=== PATIENT | male | born 1960 | race Caucasian/White ===

== ENCOUNTER 2021-02-24 23:09 | Emergency (ER) | payer BC ==
[~2021-02-24] VITALS: Ht 182.9 cm; Wt 108.9 kg
[2021-02-24 23:15] VITALS: BP_SYST 143
--- NOTE | 2021-02-24 23:15 | NUR ---
Dr. Velez bedside for pt eval
--- NOTE | 2021-02-24 23:15 | NUR ---
Placed in room 7 . Placed on monitor and storage bin tender, blood pressure machine and pulse oximeter. To gown for exam. Side rails up. Report given to MELISSA CHEUNG.
--- NOTE | 2021-02-24 23:30 | NUR ---
PT CRUZITO FROM HOME / EXT STAY [facility] TO ED FOR HIM REPORTING ON O2 INTERMITTENTLY FOR CHRONIC HYPOXIA, ORTHOPNEA. HX OF LL LOBECTOMY @AGE 3 VSS NO S/S OF ACUTE DISTRESS RESTING ON GURNEY
[2021-02-24] MEDS ORDERED: LORazepam 1 MG TABLET PO ONE (23:45)
--- NOTE | 2021-02-25 00:41 | NUR ---
Dr. Velez bedside for pt update
--- NOTE | 2021-02-25 01:25 | NUR ---
Pt stated " feeling a bit better "
[2021-02-25 02:05] VITALS: BP_SYST 143
--- NOTE | 2021-02-25 02:05 | NUR ---
Patient given written and verbal discharge instructions and verbalizes understanding. ER MD discussed with patient the results and treatment provided. Patient in stable condition. ID arm band removed. Patient educated on pain management and to follow up with PMD. Pain Scale 0/10 Opportunity for questions provided and answered.
== END 2021-02-25 02:05 | disposition home or self-care (01) ==
LOC: SED 23:09
DX: F41.9 Anxiety disorder, unspecified (principal); Z88.8 Allergy status to other drugs, medicaments and biological substances
CPT/HCPCS: 71045; 99283

== ENCOUNTER 2021-03-17 09:08 | Inpatient (IN) | payer BC, SELFPAY ==
[~2021-03-17] VITALS: Ht 170.2 cm; Wt 102.1 kg
[2021-03-17 09:12] VITALS: BP_SYST 164
--- NOTE | 2021-03-17 09:12 | NUR ---
BIB MEDICS FROM HOME FOR CP/SOB, STOPPED LASIX FOR 3 DAYS
--- NOTE | 2021-03-17 09:40 | NUR ---
DR WHEELER IN TO ASSESS
--- NOTE | 2021-03-17 09:41 | NUR ---
CALM, ALERT, NO DISTRESS, RESP UNLABRED, SKIN WARM AND DRY
[2021-03-17 09:47] LABS: BASOPHILS # (AUTO) 0.1 K/uL (0.0-0.2); BASOPHILS % (AUTO) 0.7 % (0.0-2.0); EOSINOPHILS % (AUTO) 0.4 % (0.0-4.0); HEMATOCRIT 31.1 % (36-54); HEMOGLOBIN 10.3 g/dL (14.0-18.0); LYMPHOCYTES # (AUTO) 1.2 K/uL (1.0-5.5); LYMPHOCYTES % (AUTO) 16.1 % (20.5-51.5); MEAN CORPUSCULAR HEMOGLOBIN 30 pg (27-31); MEAN CORPUSCULAR HGB CONC 33 % (32-36); MEAN CORPUSCULAR VOLUME 89 fL (79.0-98.0); MONOCYTES # (AUTO) 0.6 K/uL (0.0-1.0); MONOCYTES % (AUTO) 7.7 % (1.7-9.3); NEUTROPHILS # (AUTO) 5.5 K/uL (1.8-7.7); NEUTROPHILS % (AUTO) 75.1 % (40.0-70.0); PLATELET COUNT (AUTO) 185 K/uL (130-430); RED BLOOD CELL COUNT(AUTO) 3.49 MIL/uL (4.2-6.2); RED CELL DISTRIBUTION WIDTH 14.2 % (9.0-15.0); WHITE BLOOD COUNT (AUTO) 7.4 K/uL (4.8-10.8)
[2021-03-17 09:58] LABS: CALCIUM 8.6 mg/dL (8.4-11.0); CREATININE 0.79 mg/dL (0.55-1.30); POTASSIUM 3.5 mmol/L (3.5-5.1)
[2021-03-17 10:02] LABS: ALBUMIN 3.2 g/dL (3.4-4.8); TOTAL BILIRUBIN 0.2 mg/dL (0.0-1.0)
--- NOTE | 2021-03-17 10:42 | NUR ---
CTA CONSENT COMPLETED, TIPPLE BOSS AWARE
[2021-03-17] MEDS ORDERED: IOHEXOL 350 mgI/mL, 150 ML INFUS..BTL IV ONE (10:46)
[2021-03-17] MEDS ORDERED: MORPHINE 4 MG INJ. 4 MG/ML VIAL IVP ONE (11:30)
--- NOTE | 2021-03-17 11:38 | NUR ---
BACK FROM CT, TOLERATED WELL. NO DISTRES, VSS, SR ON MONITOR
[2021-03-17] MEDS ORDERED: ENOXAPARIN SODIUM 100 MG/ML SYRINGE SUBCUT ONE (12:00)
--- NOTE | 2021-03-17 12:20 | NUR ---
MEAL PROVIDED, PT TOLERATING WELL. NO DISTRESS
[2021-03-17 12:48] LABS: INR 0.9 (0.80-1.20); PROTHROMBIN TIME 9.9 SECS (9.5-12.5)
--- NOTE | 2021-03-17 13:16 | NUR ---
ULTRASOUND COMPLETED, TOLERATED WELL
--- NOTE | 2021-03-17 13:55 | NUR ---
PLACED ON HOSPITAL BED, REPOSITIONED, PILLOWS PROVIDED
--- NOTE | 2021-03-17 15:48 | NUR ---
DR BOLDEN IN TO ASSESS
[2021-03-17] MEDS ORDERED: METOCLOPRAMIDE HCL 10 MG/2 ML VIAL IVP PRN (16:00)
[2021-03-17] MEDS ORDERED: NALOXONE HCL 0.4 MG/ML AMP (NARCAN) IVP PRN (16:00)
[2021-03-17] MEDS ORDERED: IPRATROPIUM/ALBUTEROL SULFATE 3 ML AMPUL.NEB (DUONEB) INH PRN (16:00)
[2021-03-17] MEDS: IPRATROPIUM/ALBUTEROL SULFATE 3 ML AMPUL.NEB (DUONEB) INH SCH ×3 (16:00→23:27)
[2021-03-17] MEDS ORDERED: methylPREDNISolone SOD SUCC/PF 62.5 MG/ML VIAL IVP ONE (16:15)
[2021-03-17] MEDS ORDERED: FAMOTIDINE PF 20 MG/2 ML VIAL IVP ONE (16:15)
[2021-03-17] MEDS ORDERED: ASPIRIN 81 MG TABLET(ECOTRIN) PO ONE (16:15)
[2021-03-17] MEDS ORDERED: BISACODYL 5 MG TABLET.DR (DULCOLAX) PO ONE (16:15)
[2021-03-17] MEDS ORDERED: CARVEDILOL 6.25 MG TABLET (COREG) PO ONE (16:15)
[2021-03-17] MEDS: MORPHINE 2 MG/ML INJ. SYRINGE IVP PRN ×2 (16:30→20:46)
[2021-03-17] MEDS ORDERED: METOCLOPRAMIDE HCL 10 MG/2 ML VIAL IVP ONE (16:45)
[2021-03-17] MEDS ORDERED: cefTRIAXone 1 GM VIAL ONE (17:38)
[2021-03-17] MEDS: POTASSIUM CHLORIDE 10 MEQ TAB.PRT.SR PO SCH (17:39)
[2021-03-17] MEDS: FUROSEMIDE 20 MG TABLET PO SCH (17:40)
[2021-03-17] MEDS ORDERED: AZITHROMYCIN 500 MG/VIAL (ZITHROMAX) IV ONE (17:41)
--- NOTE | 2021-03-17 17:45 | NUR ---
UP AMBULATING STEADY, NO DISTRESS.
[2021-03-17] MEDS: AZITHROMYCIN 500 MG in NS 250 ML IV SCH (17:51)
[2021-03-17] MEDS: cefTRIAXone 1 GM in D5W 50 ML IV SCH (17:51)
[2021-03-17 18:06] VITALS: BP_SYST 141
--- NOTE | 2021-03-17 19:28 | NUR ---
Patient will be admitted to care of [facility]. Admitted to TELE unit. Will go to room 123. Belongings list completed. Complete and up to date summary report printed. SBAR report to be given at bedside with opportunity for questions.
--- NOTE | 2021-03-17 19:41 | NUR ---
ADMISSION NOTE Received patient from ER via nargis, received report from SKYE Hunter. Patient admitted with diagnosis of Dyspnea. Patient oriented to hospital routine, call light, toileting and safety-patient verbalized understanding.
[2021-03-17 19:53] VITALS: BP_SYST 146
[2021-03-17] MEDS ORDERED: FLU VACC QS2021-22(6MOS UP)/PF 0.5 ML/SYR SYRINGE I.M. PRN (20:15)
--- NOTE | 2021-03-17 20:30 | NUR ---
Initial RN notes Pt AAOx4, VSS, pt c/o chest and abd pain. O2 2L via NC satting at 98%. Medicated with Morphine 2mg IVP on R.AC 18G saline lock. Oriented to call light use, verbalized understanding. Bed low, locked, siderails up x2. To monitor.
--- NOTE | 2021-03-17 20:30 | NUR ---
Paged Dr. Oropeza [phone], s/w Judith
[2021-03-17] MEDS: methylPREDNISolone SOD SUCC/PF 62.5 MG/ML VIAL IVP SCH (20:42)
[2021-03-17] MEDS: FAMOTIDINE PF 20 MG/2 ML VIAL IVP SCH (20:42)
[2021-03-17] MEDS: CARVEDILOL 6.25 MG TABLET (COREG) PO SCH (20:42)
[2021-03-17] MEDS ORDERED: ENOXAPARIN SODIUM 100 MG/ML SYRINGE SUBCUT SCH (21:00)
[2021-03-17] MEDS ORDERED: ENOXAPARIN SODIUM 40 MG/0.4 ML SYRINGE SUBCUT SCH (21:00)
--- NOTE | 2021-03-18 00:30 | NUR ---
Pt on Bipap per RT.
[2021-03-18 00:40] VITALS: BP_SYST 131
--- NOTE | 2021-03-18 01:13 | NUR ---
CARDIO CONSULT Consult for Dr. Castro was called, RE: Dyspnea SW Darling
--- NOTE | 2021-03-18 01:19 | NUR ---
PULMO CONSULT Consult for Dr. Reddy was called, RE: Dyspnea SW Darling
[2021-03-18] MEDS: IPRATROPIUM/ALBUTEROL SULFATE 3 ML AMPUL.NEB (DUONEB) INH SCH ×5 (03:34→23:32)
[2021-03-18] MEDS: methylPREDNISolone SOD SUCC/PF 62.5 MG/ML VIAL IVP SCH ×3 (06:14→23:06)
[2021-03-18] MEDS: MORPHINE 2 MG/ML INJ. SYRINGE IVP PRN ×5 (06:16→23:07)
--- NOTE | 2021-03-18 06:16 | NUR ---
Closing notes Pt asleep, easily awakens, no s/s distress noted. Pt c/o chest and abd pain. Pt on bipap. Medicated with Morphine 2mg IVP on R.AC 18G saline lock. Bed low, locked, siderails up x2. To endorse to AM nurse.
--- NOTE | 2021-03-18 06:41 | NUR ---
Lab at bedside.
--- NOTE | 2021-03-18 07:40 | NUR ---
Opening note Patient is laying in bed A&Ox4 no complaint of pain or discomfort. No signs or symptoms of respiratory distress, tolerating 2L NC. IV is infusing no signs or symptoms of infiltration. Educated patient on plan of care and call light system, patient verbalized understanding. Bed is in lowest position, fall and aspiration precautions are in place. Will continue to monitor.
[2021-03-18 07:52] LABS: ALBUMIN 3.2 g/dL (3.4-4.8); CALCIUM 9.3 mg/dL (8.4-11.0); CREATININE 0.77 mg/dL (0.55-1.30); PHOSPHORUS 4.8 mg/dL (2.7-4.5); POTASSIUM 4.1 mmol/L (3.5-5.1); THYROID STIMULATING HORMONE 2.28 uIu/mL (0.36-3.74)
[2021-03-18 08:00] VITALS: BP_SYST 139
[2021-03-18 08:01] LABS: BASOPHILS % (AUTO) 0.2 % (0.0-2.0); HEMATOCRIT 35.3 % (36-54); HEMOGLOBIN 11.4 g/dL (14.0-18.0); LYMPHOCYTES # (AUTO) 1.1 K/uL (1.0-5.5); LYMPHOCYTES % (AUTO) 17.7 % (20.5-51.5); MEAN CORPUSCULAR HEMOGLOBIN 30 pg (27-31); MEAN CORPUSCULAR HGB CONC 32 % (32-36); MEAN CORPUSCULAR VOLUME 91 fL (79.0-98.0); MONOCYTES # (AUTO) 0.1 K/uL (0.0-1.0); MONOCYTES % (AUTO) 1.2 % (1.7-9.3); NEUTROPHILS # (AUTO) 5.1 K/uL (1.8-7.7); NEUTROPHILS % (AUTO) 80.9 % (40.0-70.0); PLATELET COUNT (AUTO) 187 K/uL (130-430); RED BLOOD CELL COUNT(AUTO) 3.87 MIL/uL (4.2-6.2); RED CELL DISTRIBUTION WIDTH 13.9 % (9.0-15.0); WHITE BLOOD COUNT (AUTO) 6.3 K/uL (4.8-10.8)
[2021-03-18] MEDS: POTASSIUM CHLORIDE 10 MEQ TAB.PRT.SR PO SCH ×2 (08:10→17:35)
[2021-03-18] MEDS: FAMOTIDINE PF 20 MG/2 ML VIAL IVP SCH ×2 (08:10→23:06)
[2021-03-18] MEDS: CARVEDILOL 6.25 MG TABLET (COREG) PO SCH ×2 (08:10→20:17)
[2021-03-18] MEDS: FUROSEMIDE 20 MG TABLET PO SCH ×2 (08:11→17:35)
[2021-03-18] MEDS: FLUoxetine HCL 20 MG CAPSULE (PROzac) PO SCH (08:11)
[2021-03-18] MEDS: ASPIRIN 81 MG TABLET(ECOTRIN) PO SCH (08:11)
[2021-03-18] MEDS: LISINOPRIL 10 MG TABLET (PRINIVIL) PO SCH (08:11)
[2021-03-18] MEDS ORDERED: ENOXAPARIN SODIUM 30 MG/0.3 ML SYRINGE SUBCUT SCH (09:00)
[2021-03-18 09:26] LABS: TOTAL BILIRUBIN 0.4 mg/dL (0.0-1.0)
[2021-03-18 12:00] VITALS: BP_SYST 135
[2021-03-18] MEDS: BISACODYL 5 MG TABLET.DR (DULCOLAX) PO PRN (13:17)
[2021-03-18] MEDS: AZITHROMYCIN 500 MG in NS 250 ML IV SCH (16:14)
--- NOTE | 2021-03-18 17:00 | NUR ---
MD rounds Dr. Hamilton into see the patient, updated on current status, new orders received. MD made aware about patient pain control goal.
[2021-03-18] MEDS: cefTRIAXone 1 GM in D5W 50 ML IV SCH (17:35)
[2021-03-18] MEDS ORDERED: QUEtiapine FUMARATE 25 MG TABLET PO SCH (18:00)
--- NOTE | 2021-03-18 18:28 | NUR ---
Closing note Patient is laying in bed A&Ox4 no complaint of pain or discomfort. No signs or symptoms of respiratory distress, tolerating 2L NC. IV is infusing no signs or symptoms of infiltration. All needs were met. Bed is in lowest position, fall and aspiration precautions are in place. Will endorse report to night filler.
[2021-03-18 20:00] VITALS: BP_SYST 125
[2021-03-18] MEDS: traMADol HCL HCL 50 MG TABLET (ULTRAM) PO PRN (20:16)
--- NOTE | 2021-03-18 20:30 | NUR ---
Consent Informed pt re MD's order for Nuclear med VQ scan of the lungs. Pt states he wants to speak w/ MD first before signing a consent.
--- NOTE | 2021-03-18 21:13 | NUR ---
Paged Dr. Oropeza s/w Meka
--- NOTE | 2021-03-18 21:16 | NUR ---
HIGH ALERT NOTE: Called Dr. Oropeza back at [phone] identified within the medical roster to verify physician authenticity for Restoril 30mg QHS.
[2021-03-18] MEDS: TEMAZEPAM 15 MG CAPSULE PO SCH (22:16)
[2021-03-18] MEDS ORDERED: TEMAZEPAM 15 MG CAPSULE ONE (22:19)
--- NOTE | 2021-03-18 22:40 | NUR ---
IV RE-INSERTION: IV site R. AC not patent. Restarted on L.FA 24G . Successful after 3 attempts. Will observe for any signs of infiltration.
--- NOTE | 2021-03-18 22:42 | NUR ---
MD rounds Dr. Reddy at bedside.
[2021-03-18] MEDS: PANTOPRAZOLE SODIUM 40 MG TAB PO SCH (23:30)
--- NOTE | 2021-03-18 23:47 | NUR ---
UA collected and sent to lab.
[2021-03-19 00:05] VITALS: BP_SYST 145
[2021-03-19 00:10] LABS: BILIRUBIN,URINE NEGATIVE (NEGATIVE); BLOOD, URINE NEGATIVE (NEGATIVE); CLARITY/URINE CLEAR (CLEAR); COLOR,URINE YELLOW (YELLOW); GLUCOSE,URINE NEGATIVE (NEGATIVE); KETONES,URINE NEGATIVE (NEGATIVE); LEUKOCYTE ESTERASE ,URINE NEGATIVE (NEGATIVE); NITRITE, URINE NEGATIVE (NEGATIVE); PH,URINE 6.5 (5.0-8.0); PROTEIN URINE NEGATIVE (NEGATIVE); UROBILINOGEN,URINE 0.2 (0.2-1.0)
[2021-03-19] MEDS: MORPHINE 2 MG/ML INJ. SYRINGE IVP PRN ×5 (03:03→21:35)
[2021-03-19] MEDS: IPRATROPIUM/ALBUTEROL SULFATE 3 ML AMPUL.NEB (DUONEB) INH SCH ×6 (03:42→23:30)
--- NOTE | 2021-03-19 06:00 | NUR ---
Closing notes Pt asleep, easily awakens, no s/s distress noted, no c/o sob or dyspnea. Pt on bipap. IV L.FA 24G clear and patent. Bed low, locked, siderails up x2. To endorse to AM nurse.
[2021-03-19] MEDS: methylPREDNISolone SOD SUCC/PF 62.5 MG/ML VIAL IVP SCH ×2 (06:03→13:12)
[2021-03-19 06:49] LABS: BASOPHILS % (AUTO) 0.1 % (0.0-2.0); HEMATOCRIT 33.5 % (36-54); LYMPHOCYTES # (AUTO) 0.8 K/uL (1.0-5.5); MEAN CORPUSCULAR HEMOGLOBIN 30 pg (27-31); MEAN CORPUSCULAR HGB CONC 33 % (32-36); MEAN CORPUSCULAR VOLUME 91 fL (79.0-98.0); MONOCYTES # (AUTO) 0.3 K/uL (0.0-1.0); MONOCYTES % (AUTO) 3.1 % (1.7-9.3); NEUTROPHILS # (AUTO) 7.7 K/uL (1.8-7.7); NEUTROPHILS % (AUTO) 87.8 % (40.0-70.0); PLATELET COUNT (AUTO) 181 K/uL (130-430); RED BLOOD CELL COUNT(AUTO) 3.68 MIL/uL (4.2-6.2); RED CELL DISTRIBUTION WIDTH 14.4 % (9.0-15.0); WHITE BLOOD COUNT (AUTO) 8.8 K/uL (4.8-10.8)
[2021-03-19 07:30] LABS: ALBUMIN 2.8 g/dL (3.4-4.8); CREATININE 0.72 mg/dL (0.55-1.30); POTASSIUM 4.1 mmol/L (3.5-5.1); THYROID STIMULATING HORMONE 1.61 uIu/mL (0.36-3.74); TOTAL BILIRUBIN 0.2 mg/dL (0.0-1.0)
--- NOTE | 2021-03-19 07:50 | NUR ---
Opening note Patient is laying in bed A&Ox4, complains of generalized pain, will provide pain medication. No signs or symptoms of respiratory distress, tolerating 2L NC. IV is infusing no signs or symptoms of infiltration. Educated patient on plan of care and call light system, patient verbalized understanding. Bed is in lowest position, fall and aspiration precautions are in place. Will continue to monitor.
[2021-03-19 08:00] VITALS: BP_SYST 121
--- NOTE | 2021-03-19 08:00 | NUR ---
Patient refused Patient refused Lung scan, provided education, patient says he can not lay flat for the duration of the scan. Will inform MD.
[2021-03-19] MEDS: FAMOTIDINE PF 20 MG/2 ML VIAL IVP SCH (08:37)
[2021-03-19] MEDS: PANTOPRAZOLE SODIUM 40 MG TAB PO SCH (08:37)
[2021-03-19] MEDS: CARVEDILOL 6.25 MG TABLET (COREG) PO SCH ×2 (08:38→20:26)
[2021-03-19] MEDS: ASPIRIN 81 MG TABLET(ECOTRIN) PO SCH (08:38)
[2021-03-19] MEDS: POTASSIUM CHLORIDE 10 MEQ TAB.PRT.SR PO SCH ×2 (08:38→17:25)
[2021-03-19] MEDS: FLUoxetine HCL 20 MG CAPSULE (PROzac) PO SCH (08:38)
[2021-03-19] MEDS: FUROSEMIDE 20 MG TABLET PO SCH ×2 (08:39→17:25)
[2021-03-19] MEDS: ENOXAPARIN SODIUM 40 MG/0.4 ML SYRINGE SUBCUT SCH (08:40)
[2021-03-19] MEDS: LISINOPRIL 10 MG TABLET (PRINIVIL) PO SCH (08:40)
[2021-03-19 12:32] VITALS: BP_SYST 147
--- NOTE | 2021-03-19 14:32 | NUR ---
Dietitian Recommendations * Recommend continuing cardiac diet * Consider CCHO diet if BG persist increasing. Please see Nutritional Assessment for details. SHAZIA, JULIAN
[2021-03-19] MEDS: AZITHROMYCIN 500 MG in NS 250 ML IV SCH (16:08)
[2021-03-19 16:35] VITALS: BP_SYST 140
[2021-03-19] MEDS: cefTRIAXone 1 GM in D5W 50 ML IV SCH (17:24)
[2021-03-19] MEDS ORDERED: LACTULOSE 20 GM/30 ML UDC PO ONE (17:30)
[2021-03-19] MEDS ORDERED: LACTULOSE 20 GM/30 ML UDC PO PRN (17:30)
--- NOTE | 2021-03-19 17:51 | NUR ---
Patient refused Patient refused one time order of lactulose, prefers to take it in the morning
[2021-03-19] MEDS ORDERED: QUEtiapine FUMARATE 100 MG TABLET PO SCH (18:00)
--- NOTE | 2021-03-19 18:43 | NUR ---
Closing note Patient is laying in bed A&Ox4, complains of generalized pain, will provide pain medication. No signs or symptoms of respiratory distress, tolerating 2L NC. IV is infusing no signs or symptoms of infiltration. All needs were met. Bed is in lowest position, fall and aspiration precautions are in place. Will endorse report to night guard.
--- NOTE | 2021-03-19 19:55 | NUR ---
Opening notes Pt AAO, watching TV, O2 2L via NC satting at 99%. Pt c/o L. shoulder pain and requesting Ultram pill. Will medicated as needed. IV L. FA 24G clear and patent. Call light within reach. Bed low, locked, siderails up x2. To monitor.
[2021-03-19 20:00] VITALS: BP_SYST 139
[2021-03-19] MEDS: BISACODYL 5 MG TABLET.DR (DULCOLAX) PO PRN (20:26)
[2021-03-19] MEDS: FAMOTIDINE 20 MG TABLET PO SCH (20:26)
[2021-03-19] MEDS: methylPREDNISolone SOD SUCC 40 MG/ML VIAL IVP SCH (20:27)
[2021-03-19] MEDS: traMADol HCL HCL 50 MG TABLET (ULTRAM) PO PRN (20:36)
[2021-03-19] MEDS: TEMAZEPAM 15 MG CAPSULE PO SCH (23:01)
[2021-03-20 00:37] VITALS: BP_SYST 127
[2021-03-20] MEDS: MORPHINE 2 MG/ML INJ. SYRINGE IVP PRN ×2 (03:09→10:00)
--- NOTE | 2021-03-20 03:09 | NUR ---
Morphine Pt awake and requested for Morphine for L. shoulder pain 12/08. Medicated as needed. Assisted pt to put back Bipap mask. Call light within reach. To monitor.
--- NOTE | 2021-03-20 04:30 | NUR ---
Consultation Paged Reason for Consultation: Arm muscular atrophy Was consult called: Y Person who was notified: Dr. Duong text message Consulting Physician: Elliot Roach Ordering Physician: Dr. Oropeza
--- NOTE | 2021-03-20 06:30 | NUR ---
Closing notes Pt asleep easily awakens, no s/s distress noted. Called Radiology and states no consent is needed, but pt needs to be NPO. Instructed pt re NPO for nuclear med lung scan. Pt verbalized understanding. Call light within reach. Safety maintained. To monitor.
[2021-03-20] MEDS: IPRATROPIUM/ALBUTEROL SULFATE 3 ML AMPUL.NEB (DUONEB) INH SCH ×3 (07:26→22:59)
[2021-03-20 08:02] VITALS: BP_SYST 136
--- NOTE | 2021-03-20 08:05 | NUR ---
OPENING NOTES PATIENT AAOX 4. HAS IV ACCESS ON THE LEFT FOREARM #20. SALINE LOCK. STILL ON BIPAP, PATIENT REFUSING TO HAVE ON 2LNC. VITALS SIGNS STABLE. AFEBRILE. CALL LIGHTS WITHIN REACH. BED LOW POSITION, ALARMED AND LOCKED. WILL CONTINUE TO MONITOR PATIENTS STATUS.
--- NOTE | 2021-03-20 09:20 | NUR ---
RT NOTE: 0920 Pt taken off of BiPAP at this time. Pt got up and went to restroom. Placed on 2LPM NC once in bed. No resp distress noted. RN Charleen made aware that pt is off BiPAP. BiPAP on standby.
[2021-03-20] MEDS: FAMOTIDINE 20 MG TABLET PO SCH (10:02)
[2021-03-20] MEDS: POTASSIUM CHLORIDE 10 MEQ TAB.PRT.SR PO SCH (10:02)
[2021-03-20] MEDS: ASPIRIN 81 MG TABLET(ECOTRIN) PO SCH (10:02)
[2021-03-20] MEDS: FLUoxetine HCL 20 MG CAPSULE (PROzac) PO SCH (10:02)
[2021-03-20] MEDS: LISINOPRIL 10 MG TABLET (PRINIVIL) PO SCH (10:03)
[2021-03-20] MEDS: PANTOPRAZOLE SODIUM 40 MG TAB PO SCH (10:03)
[2021-03-20] MEDS: BISACODYL 5 MG TABLET.DR (DULCOLAX) PO PRN (10:03)
[2021-03-20] MEDS: FUROSEMIDE 20 MG TABLET PO SCH (10:04)
[2021-03-20] MEDS: ENOXAPARIN SODIUM 40 MG/0.4 ML SYRINGE SUBCUT SCH (10:06)
[2021-03-20] MEDS: CARVEDILOL 6.25 MG TABLET (COREG) PO SCH (10:25)
[2021-03-20] MEDS: methylPREDNISolone SOD SUCC 40 MG/ML VIAL IVP SCH (10:25)
--- NOTE | 2021-03-20 11:23 | NUR ---
RT NOTE: Pt was placed on BIPAP at 1113 for nebulizer tx, this was pt's preference. At 1123, pt taken off BiPAP and placed on 2LPM NC. No resp distress noted. Addendum: 03/20/21 at 1151 by Melanie Cowart RT Amended: Links added.
[2021-03-20 13:03] VITALS: BP_SYST 130
[2021-03-20 20:15] VITALS: BP_SYST 135
--- NOTE | 2021-03-20 21:15 | NUR ---
Patient awake alert asking for pain medication call baltazar given to patient assist for position change HOB kept elevated .
--- NOTE | 2021-03-20 22:15 | NUR ---
MORPHINE SULFATE 2 MG IVP ADMINISTER FOR ACUTE BACK PAIN 12/08 continue to monitor comfort measures again helpful .
[2021-03-21] MEDS: MORPHINE 2 MG/ML INJ. SYRINGE IVP PRN ×3 (00:49→12:12)
[2021-03-21 01:00] VITALS: BP_SYST 141
[2021-03-21] MEDS: IPRATROPIUM/ALBUTEROL SULFATE 3 ML AMPUL.NEB (DUONEB) INH SCH ×2 (02:55→11:45)
--- NOTE | 2021-03-21 05:13 | NUR ---
MORPHINE SULFATE 2 MG IVP administer for general pain and helpful comfort measures implemented off loading with pillows call baltazar given to patient .
--- NOTE | 2021-03-21 08:00 | NUR ---
Patient A/Ox4. on BIPAP, SR on monitor. SR on monitor. Call light in place, bed locked at the lowest position, will continue to monitor.
[2021-03-21] MEDS: POTASSIUM CHLORIDE 10 MEQ TAB.PRT.SR PO SCH (08:09)
[2021-03-21] MEDS: PANTOPRAZOLE SODIUM 40 MG TAB PO SCH (08:09)
[2021-03-21] MEDS: ASPIRIN 81 MG TABLET(ECOTRIN) PO SCH (08:09)
[2021-03-21] MEDS: FAMOTIDINE 20 MG TABLET PO SCH (08:10)
[2021-03-21] MEDS: FUROSEMIDE 20 MG TABLET PO SCH (08:10)
[2021-03-21] MEDS: LISINOPRIL 10 MG TABLET (PRINIVIL) PO SCH (08:10)
[2021-03-21] MEDS: FLUoxetine HCL 20 MG CAPSULE (PROzac) PO SCH (08:11)
[2021-03-21] MEDS: CARVEDILOL 6.25 MG TABLET (COREG) PO SCH (08:15)
[2021-03-21] MEDS: ENOXAPARIN SODIUM 40 MG/0.4 ML SYRINGE SUBCUT SCH (08:18)
[2021-03-21 10:58] VITALS: BP_SYST 132
[2021-03-21] MEDS ORDERED: Lactulose PO (11:03)
[2021-03-21] MEDS ORDERED: COR6.25 PO (11:03)
[2021-03-21] MEDS ORDERED: Aspirin Ec PO (11:03)
[2021-03-21] MEDS ORDERED: FURO-150 PO (11:03)
[2021-03-21] MEDS ORDERED: PRO20 PO (11:03)
[2021-03-21] MEDS ORDERED: SER100 PO (11:03)
[2021-03-21] MEDS ORDERED: FAMO20TA8 PO (11:03)
[2021-03-21] MEDS ORDERED: IPRA3AMP9 INH (11:03)
[2021-03-21] MEDS ORDERED: Potassium Chloride PO (11:04)
--- NOTE | 2021-03-21 12:20 | NUR ---
Dr. Oropeza at bedside. D/C order given.
--- NOTE | 2021-03-21 13:00 | NUR ---
CM: Call placed to [facility], request made for home nebulizer machine, patient info faxed to company, states will be delivered tomorrows date at the earliest. contact info is # spoke to Arya for conformation.
--- NOTE | 2021-03-21 13:45 | NUR ---
CM: Call placed to [facility] , request for H/H services, patient info faxed over to agency, awaiting confirmation, will cont' with poc.
--- NOTE | 2021-03-21 15:48 | NUR ---
D/C Patient Patient given medication reconciliation form and D/C instructions. Exit Care provided. Patient verbalized understanding. MD discussed with patient the results and treatment provided. Ambulatory with steady gait for discharge to home. Patient in stable condition, ID band removed. IV catheter removed, intact and dressing applied, no active bleeding. Rx is given. Patient educated on pain management. All belongings sent with patient.
--- NOTE | 2021-03-21 16:00 | NUR ---
CM: Received confirmation of home health, will start tomorrow with [facility], spoke Phi in admin. will follow-up in am.
== END 2021-03-21 15:40 | disposition home health service (06) | DRG 191 ==
LOC: SED 09:08 → STU 12:23
PROVIDERS: ADMIT Internal Medicine; ATTEND Internal Medicine
PROC: 5A09457 Assistance with Respiratory Ventilation, 24-96 Consecutive Hours, Continuous Positive Airway Pressure (ICD-10-PCS; principal; 2021-03-18)
PROC: 5A09357 Assistance with Respiratory Ventilation, Less than 24 Consecutive Hours, Continuous Positive Airway Pressure (ICD-10-PCS; 2021-03-21)
DX: J44.1 Chronic obstructive pulmonary disease with (acute) exacerbation (principal); J96.10 Chronic respiratory failure, unspecified whether with hypoxia or hypercapnia; F41.9 Anxiety disorder, unspecified; I10 Essential (primary) hypertension; F32.A Depression, unspecified; Z20.822 Contact with and (suspected) exposure to COVID-19; J98.6 Disorders of diaphragm; E78.5 Hyperlipidemia, unspecified; E66.01 Morbid (severe) obesity due to excess calories; Z68.35 Body mass index [BMI] 35.0-35.9, adult; Z88.8 Allergy status to other drugs, medicaments and biological substances
CPT/HCPCS: 36415; 36600; 71045; 73030; 74018; 78579; 78580-TC; 80053; 80061; 81003; 82803-TC; 83735; 83880; 84100; 84443; 84484; 85025; 85379; 85610-TC; 85730-TC; 87040-TC; 93005; 93306; 93970; 94640; 94660; 94760; 96372; 96374; 96375; 99285; A9539; A9540; G0378; J0456; J0696; J1030; J1650; J2270; J2765; J2930; J3490; J7050; J7060; Q9967

== ENCOUNTER 2021-04-20 22:06 | Emergency (ER) | payer BC, SELFPAY ==
[~2021-04-20] VITALS: Ht 182.9 cm; Wt 102.1 kg
[~2021-04-20 22:06] MED LIST: Aspirin Ec PO; COR6.25 PO; FAMO20TA8 PO; FURO-150 PO; IPRA3AMP9 INH; Lactulose PO; PRO20 PO; Potassium Chloride PO; SER100 PO
--- NOTE | 2021-04-20 22:10 | NUR ---
PT BIB BLS AMBULANCE FOR GENERAL WEAKNESS AND PREVIOUS FALL. PT HAS BEEN FEELING WEAK SINCE AFTERNOON TODAY. HAS HAD ABOUT 2 FALLS THIS WEAK ALONE. PT HAS A HX OF DIAPHRAGM ISSUES, ON CHRONIC . A&OX4. -CP. NO REAL PAIN, JUST SOME NERVE ISSUES
--- NOTE | 2021-04-20 22:18 | NUR ---
ER Dr. ZAVALA at bedside examining patient.
[2021-04-20] MEDS ORDERED: NACL 0.9% 1,000 ML IV ONE (22:45)
--- NOTE | 2021-04-20 22:45 | NUR ---
XR AT BEDSIDE
[2021-04-20 22:46] VITALS: BP_SYST 141
--- NOTE | 2021-04-20 22:57 | NUR ---
# 20 gauge angiocath placed to R FOREARM. Use of asceptic technique. Opsite placed over site. Blood return noted. Blood for lab drawn from site. Flushed with 10 cc of normal saline. No evidence of infiltration noted. Patient tolerated well.
[2021-04-20] MEDS ORDERED: CARVEDILOL 6.25 MG TABLET (COREG) PO ONE (23:15)
[2021-04-20 23:26] LABS: HEMOGLOBIN 9.6 g/dL (14.0-18.0); PLATELET COUNT (AUTO) 120 K/uL (130-430); WHITE BLOOD COUNT (AUTO) 5.5 K/uL (4.8-10.8)
[2021-04-20 23:32] LABS: INR 0.9 (0.80-1.20); PROTHROMBIN TIME 9.6 SECS (9.5-12.5)
[2021-04-20 23:40] LABS: BASOPHILS % (AUTO) 0.5 % (0.0-2.0); CALCIUM 8.4 mg/dL (8.4-11.0); CREATININE 0.87 mg/dL (0.55-1.30); EOSINOPHILS # (AUTO) 0.1 K/uL (0.0-0.4); EOSINOPHILS % (AUTO) 2.4 % (0.0-4.0); HEMATOCRIT 28.8 % (36-54); LYMPHOCYTES # (AUTO) 2.1 K/uL (1.0-5.5); LYMPHOCYTES % (AUTO) 37.5 % (20.5-51.5); MEAN CORPUSCULAR HEMOGLOBIN 30 pg (27-31); MEAN CORPUSCULAR HGB CONC 33 % (32-36); MEAN CORPUSCULAR VOLUME 91 fL (79.0-98.0); MONOCYTES # (AUTO) 0.6 K/uL (0.0-1.0); MONOCYTES % (AUTO) 10.6 % (1.7-9.3); NEUTROPHILS # (AUTO) 2.7 K/uL (1.8-7.7); RED BLOOD CELL COUNT(AUTO) 3.17 MIL/uL (4.2-6.2); RED CELL DISTRIBUTION WIDTH 19.1 % (9.0-15.0)
[2021-04-20 23:45] LABS: ALBUMIN 3.5 g/dL (3.4-4.8); TOTAL BILIRUBIN 0.5 mg/dL (0.0-1.0)
--- NOTE | 2021-04-21 00:40 | NUR ---
PT PROVIDED FOOD AND WATER. MD BAIRD
[2021-04-21] MEDS ORDERED: POTASSIUM CHLORIDE 20 MEQ TAB.PRT.SR ONE (01:41)
[2021-04-21 01:42] LABS: BILIRUBIN,URINE NEGATIVE (NEGATIVE); BLOOD, URINE NEGATIVE (NEGATIVE); CLARITY/URINE CLEAR (CLEAR); COLOR,URINE YELLOW (YELLOW); GLUCOSE,URINE NEGATIVE (NEGATIVE); KETONES,URINE 1+ (NEGATIVE); LEUKOCYTE ESTERASE ,URINE NEGATIVE (NEGATIVE); NITRITE, URINE NEGATIVE (NEGATIVE); PH,URINE 5.5 (5.0-8.0); PROTEIN URINE TRACE (NEGATIVE); UROBILINOGEN,URINE 0.2 (0.2-1.0)
[2021-04-21] MEDS ORDERED: POTASSIUM CHLORIDE 20 MEQ TAB.PRT.SR PO ONE (01:45)
[2021-04-21] MEDS ORDERED: KCL 20 mEq in 100 mL (PREMIX) 100 ML IV ONE (01:45)
--- NOTE | 2021-04-21 02:09 | NUR ---
Dr. Holland bedside for pt update / re-eval
--- NOTE | 2021-04-21 03:30 | NUR ---
PT AWAITING TRANSPORT TO TAKE HIM BACK HOME TO [facility]
[2021-04-21 05:32] VITALS: BP_SYST 165
== END 2021-04-21 05:32 | disposition home or self-care (01) ==
LOC: SED 22:06
DX: E87.6 Hypokalemia (principal); D64.9 Anemia, unspecified
CPT/HCPCS: 36415; 71045; 80053; 81000; 81003; 83605; 84484; 85025; 85610; 85730; 87040; 93005; 96361; 96374; 99285; J3480; J7030

== ENCOUNTER 2021-05-01 13:27 | Emergency (ER) | payer BC, SELFPAY ==
[~2021-05-01] VITALS: Ht 182.9 cm; Wt 102.1 kg
--- NOTE | 2021-05-01 13:30 | NUR ---
BROUGHT IN BY [facility], PLACED IN BED #6 AND TRIAGED. REPORT GIVEN TO TATO
[2021-05-01 13:36] VITALS: BP_SYST 167
--- NOTE | 2021-05-01 13:47 | NUR ---
Pt. bib BLS with c/o shakiness, has been drinking vodka daily and hasn't had a drink since last night now feels weak and "shaky", requesting something to help detox., has not been taking care of himself and is tired of how he has been living
--- NOTE | 2021-05-01 14:00 | NUR ---
SL placed labs drawn
[2021-05-01 14:12] LABS: BASOPHILS % (AUTO) 0.8 % (0.0-2.0); EOSINOPHILS % (AUTO) 0.8 % (0.0-4.0); HEMATOCRIT 34.4 % (36-54); HEMOGLOBIN 11.5 g/dL (14.0-18.0); LYMPHOCYTES # (AUTO) 1.4 K/uL (1.0-5.5); LYMPHOCYTES % (AUTO) 24.3 % (20.5-51.5); MEAN CORPUSCULAR HEMOGLOBIN 31 pg (27-31); MEAN CORPUSCULAR HGB CONC 34 % (32-36); MEAN CORPUSCULAR VOLUME 92 fL (79.0-98.0); MONOCYTES # (AUTO) 0.7 K/uL (0.0-1.0); MONOCYTES % (AUTO) 13.1 % (1.7-9.3); NEUTROPHILS # (AUTO) 3.4 K/uL (1.8-7.7); PLATELET COUNT (AUTO) 203 K/uL (130-430); RED BLOOD CELL COUNT(AUTO) 3.75 MIL/uL (4.2-6.2); RED CELL DISTRIBUTION WIDTH 20.2 % (9.0-15.0); WHITE BLOOD COUNT (AUTO) 5.6 K/uL (4.8-10.8)
[2021-05-01 14:25] LABS: ANION GAP 9 (5-15); CALCIUM 9.2 mg/dL (8.4-11.0); CHLORIDE 95 mmol/L (98-107); GLUCOSE 101 mg/dL (70-99); POTASSIUM 3.8 mmol/L (3.5-5.1); SODIUM SERUM 139 mmol/L (136-145); UREA NITROGEN, BLOOD 14 mg/dL (8-21)
[2021-05-01 14:26] LABS: GFR AFRICAN AMERICAN 126 mL/min (>90)
[2021-05-01 14:31] LABS: ALANINE AMINOTRANSFERASE 40 U/L (12-78); ALBUMIN 3.9 g/dL (3.4-4.8); ALCOHOL, BLOOD 79 mg/dL (<10); ASPARTATE AMINOTRANSFERASE 69 U/L (10-37); TOTAL BILIRUBIN 0.6 mg/dL (0.0-1.0)
[2021-05-01 14:32] LABS: ACETAMINOPHEN < 1 ug/mL (1-30)
[2021-05-01 14:46] LABS: CHOLESTEROL 245 mg/dL (<200); HDL CHOLESTEROL 144 mg/dL (>45); LDL CHOLESTEROL 68 mg/dL (<100); TRIGLYCERIDES 128 mg/dL (30-150)
[2021-05-01] MEDS ORDERED: NACL 0.9% 1,000 ML IV ONE (15:00)
[2021-05-01] MEDS ORDERED: FOLIC ACID 1 MG, THIAMINE HCL 100 MG, MAGNESIUM SULFATE 1 GM, MVI 10 ML in NACL 0.9% 1,... IV ONE (15:00)
[2021-05-01] MEDS ORDERED: ONDANSETRON HCL 4 MG/2 ML VIAL IVP ONE (15:00)
[2021-05-01] MEDS ORDERED: LORazepam 2 MG/ML VIAL IVP ONE (15:00)
[2021-05-01] MEDS ORDERED: ONDANSETRON HCL 4 MG/2 ML VIAL ONE (15:06)
[2021-05-01] MEDS ORDERED: FOLIC ACID 1 MG, MVI 10 ML in NACL 0.9% 1,000 ML IV ONE (15:15)
[2021-05-01] MEDS ORDERED: THIAMINE HCL 100 MG, MAGNESIUM SULFATE 1 GM in NS 100 ML IV ONE (15:15)
[2021-05-01 16:18] LABS: BILIRUBIN,URINE NEGATIVE (NEGATIVE); BLOOD, URINE NEGATIVE (NEGATIVE); CLARITY/URINE CLEAR (CLEAR); COLOR,URINE YELLOW (YELLOW); GLUCOSE,URINE NEGATIVE (NEGATIVE); KETONES,URINE 3+ (NEGATIVE); LEUKOCYTE ESTERASE ,URINE NEGATIVE (NEGATIVE); NITRITE, URINE NEGATIVE (NEGATIVE); PROTEIN URINE 1+ (NEGATIVE)
[2021-05-01 16:24] LABS: BACTERIA,URINE RARE /HPF (None Seen); MUCUS,URINE None Seen /LPF (None Seen); RBC,URINE 0-3 /HPF (0-3); WBC,URINE 0-3 /HPF (0-3)
--- NOTE | 2021-05-01 16:24 | NUR ---
DR COREY AWARE OF BP OK FOR PATIENT TO TAKE OWN COREG
[2021-05-01 16:25] LABS: BARBITURATE, URINE NEGATIVE (NEG <=200); BENZODIAZEPINE, URINE POSITIVE (NEG <=150); CANNABINOID, URINE NEGATIVE (NEG <=50); COCAINE, URINE NEGATIVE (NEG <=150); METHAMPHETAMINES SCREEN,URINE NEGATIVE (NEG <=500); OPIATE, URINE NEGATIVE (NEG <=100); PHENCYCLIDINE SCREEN,URINE NEGATIVE (NEG <=25); UR TRICYCLIC ANTIDEPRESSANTS NEGATIVE (NEG <=300); URINE AMPHETAMINE NEGATIVE (NEG <=500); URINE METHADONE NEGATIVE (NEG <=200); URINE OXYCODONE SCREEN NEGATIVE (NEG <=100); URINE PROPOXYPHENE SCREEN NEGATIVE (NEG <=300)
[2021-05-01] MEDS ORDERED: cloNIDine HCL 0.1 MG TABLET PO ONE (17:00)
[2021-05-01] MEDS ORDERED: ALPRAZolam 0.25 MG TABLET PO ONE (17:00)
[2021-05-01 18:59] VITALS: BP_SYST 144
--- NOTE | 2021-05-01 19:01 | NUR ---
Patient given written and verbal discharge instructions and verbalizes understanding. ER traci GRAYSON discussed with patient the results and treatment provided. Patient in stable condition. ID arm band removed. IV catheter removed intact and dressing applied, no active bleeding. Patient educated on pain management and to follow up with PMD. Pain Scale 0. Opportunity for questions provided and answered. Medication side effect fact sheet provided.
== END 2021-05-01 19:01 | disposition home or self-care (01) ==
LOC: SED 13:27
DX: F10.239 Alcohol dependence with withdrawal, unspecified (principal); Z88.8 Allergy status to other drugs, medicaments and biological substances; Z79.82 Long term (current) use of aspirin; Z79.899 Other long term (current) drug therapy; Y90.3 Blood alcohol level of 60-79 mg/100 ml
CPT/HCPCS: 36415; 71045; 80053; 80061; 80307; 81000; 83036; 85025; 86308; 93005; 96361; 96365; 96366; 96368; 96375; 99285; G0480; J2060; J2405; J3411; J3475; J3490; J7030; G0481; G0482

== ENCOUNTER 2021-11-27 22:47 | Inpatient (IN) | payer BC ==
[~2021-11-27] VITALS: Ht 182.9 cm; Wt 111.8 kg
[2021-11-27 22:52] VITALS: BP_SYST 162
--- NOTE | 2021-11-27 23:06 | NUR ---
Placed in room 1 . Placed on laboratory monitor, blood pressure machine and pulse oximeter. To gown for exam. Side rails up. Report given to ALICIA CHEUNG.
--- NOTE | 2021-11-27 23:21 | NUR ---
Patient to bed 1 at this time w/ c/o chest x1 hour midsternal 03/10 1 hour ago per patient. Pt states "I have no chest pain at this time". Respirations tachypneic and mildly labored. Pt placed on hand bulldozer and pulse oximetry. Side rails up bed in low position
[2021-11-28] VITALS (7 sets, daily range): BP systolic 120–172
--- NOTE | 2021-11-28 | NUR ---
# 20 gauge angiocath placed to left hand. Use of asceptic technique. Opsite placed over site. Blood return noted. Blood for lab drawn from site. Flushed with 10 cc of normal saline. No evidence of infiltration noted. Patient tolerated well.
--- NOTE | 2021-11-28 00:40 | NUR ---
Pt ambulating to bathroom at this time
[2021-11-28 00:51] LABS: BASOPHILS # (AUTO) 0.1 K/uL (0.0-0.2); BASOPHILS % (AUTO) 1.2 % (0.0-2.0); EOSINOPHILS % (AUTO) 0.2 % (0.0-4.0); HEMATOCRIT 38.1 % (36-54); HEMOGLOBIN 13.2 g/dL (14.0-18.0); LYMPHOCYTES # (AUTO) 1.2 K/uL (1.0-5.5); LYMPHOCYTES % (AUTO) 14.5 % (20.5-51.5); MEAN CORPUSCULAR HEMOGLOBIN 31 pg (27-31); MEAN CORPUSCULAR HGB CONC 35 % (32-36); MEAN CORPUSCULAR VOLUME 90 fL (79.0-98.0); MONOCYTES # (AUTO) 0.5 K/uL (0.0-1.0); MONOCYTES % (AUTO) 5.5 % (1.7-9.3); NEUTROPHILS # (AUTO) 6.7 K/uL (1.8-7.7); NEUTROPHILS % (AUTO) 78.6 % (40.0-70.0); PLATELET COUNT (AUTO) 228 K/uL (130-430); RED BLOOD CELL COUNT(AUTO) 4.24 MIL/uL (4.2-6.2); RED CELL DISTRIBUTION WIDTH 15.5 % (9.0-15.0); WHITE BLOOD COUNT (AUTO) 8.5 K/uL (4.8-10.8)
[2021-11-28 00:56] LABS: ANION GAP 11 (5-15); CALCIUM 8.9 mg/dL (8.4-11.0); CHLORIDE 100 mmol/L (98-107); CREATININE 0.84 mg/dL (0.55-1.30); GLUCOSE 138 mg/dL (70-99); POTASSIUM 3.9 mmol/L (3.5-5.1); SODIUM SERUM 137 mmol/L (136-145); UREA NITROGEN, BLOOD 19 mg/dL (8-21)
[2021-11-28 00:59] LABS: PROTHROMBIN TIME 10.1 SECS (9.5-12.5)
[2021-11-28 01:11] LABS: ALANINE AMINOTRANSFERASE 56 U/L (12-78); ALBUMIN 3.8 g/dL (3.4-4.8); ASPARTATE AMINOTRANSFERASE 57 U/L (10-37); TOTAL BILIRUBIN 0.7 mg/dL (0.0-1.0)
[2021-11-28 01:13] LABS: ALCOHOL, BLOOD < 3 mg/dL (<10); GFR AFRICAN AMERICAN 119 mL/min (>90)
--- NOTE | 2021-11-28 01:27 | NUR ---
Pt requesting medication for nausea at this time. made aware.
[2021-11-28] MEDS ORDERED: NACL 0.9% 1,000 ML IV ONE (01:45)
[2021-11-28] MEDS ORDERED: ONDANSETRON HCL 4 MG/2 ML VIAL IVP ONE ×2 (01:45)
--- NOTE | 2021-11-28 02:13 | NUR ---
MD at bedside updating patient on plan of care.
--- NOTE | 2021-11-28 02:50 | NUR ---
PT STATES THAT HE IS HAVING ANXIETY ATTACK AT THIS TIME AND HE STATED THAT HE IS TAKING XANAX 0.25 MG, INFORMED DR. HORNE AND RECEIVED ORDERS TO GIVE XANAX 0.25 MG
[2021-11-28] MEDS ORDERED: ALPRAZolam 0.25 MG TABLET ONE (02:57)
[2021-11-28] MEDS ORDERED: ALPRAZolam 0.25 MG TABLET PO ONE (03:00)
--- NOTE | 2021-11-28 03:14 | NUR ---
PATIENT SWABBED ENERGY CROP FARMER, LABELED AND SENT TO LAB
[2021-11-28] MEDS ORDERED: chlordiazePOXIDE HCL 25 MG CAPSULE PO ONE (03:15)
--- NOTE | 2021-11-28 03:24 | NUR ---
Admit bed requested Patient will be admitted to care of . Admitted to TELE unit. Diagnosis CP Inpatient (Yes or No) YES Observation (Yes or No) NO Orientation concerns or request close to nursing station (Yes or No) NO Covid Status PENDING On vent or bipap NO Isolation requirements NO Needs a sitter NO From Home (Yes or if No enter name of facility) NO Requires Dialysis (Yes or No) N0 Med Rec Completed (Yes of No) PENDING
--- NOTE | 2021-11-28 04:58 | NUR ---
ADMIT NOTE Received pt from ER with a diagnosis of chest pain. Admission process initiated. patient oriented to pain management, safety and call light-teach back done.
--- NOTE | 2021-11-28 04:59 | NUR ---
Report given to Elvira RNs at bedside for room 112A
--- NOTE | 2021-11-28 05:10 | NUR ---
CONSULTATION PAGED/CALLED Reason for Consultation: cHEST PAIN Person Who was Notified: Carrol Consulting Physician: Dr. Castro Feltmaker And Weigher Specialty: derivatives trader Ordering Physician: Dr. Lopez
--- NOTE | 2021-11-28 05:17 | NUR ---
CONSULTATION PAGED/CALLED Reason for Consultation: SOB Person Who was Notified: JOHN Consulting Physician: DR. MOROCHO Gas Well Drilling Manager Specialty: HIDES INSPECTOR Ordering Physician: DR. MUSA
[2021-11-28] MEDS: ONDANSETRON HCL 4 MG/2 ML VIAL IVP PRN ×3 (05:41→17:33)
[2021-11-28] MEDS: D5/0.45 NS 1,000 ML IV SCH ×2 (05:41→23:15)
--- NOTE | 2021-11-28 08:00 | NUR ---
Morning notes: Pt A/Ox4 resting in chair. No s/s of respiratory or cardiac distress, L hand IV site is clean dry and intact with ordered fluids running. Safety precautions in place, call light with in reach, will continue to monitor.
[2021-11-28] MEDS ORDERED: IPRATROPIUM/ALBUTEROL SULFATE 3 ML AMPUL.NEB (DUONEB) INH PRN (09:15)
[2021-11-28] MEDS ORDERED: PRO20 PO (09:26)
[2021-11-28] MEDS ORDERED: COR12.5 PO (09:26)
[2021-11-28] MEDS ORDERED: QUET200T PO (09:26)
[2021-11-28] MEDS ORDERED: LIP40 PO (09:26)
[2021-11-28] MEDS: PANTOPRAZOLE SODIUM 40 MG/VIAL (PROTONIX) IVP SCH (09:50)
[2021-11-28 10:09] LABS: CHOLESTEROL 207 mg/dL (<200); HDL CHOLESTEROL 82 mg/dL (>45); LDL CHOLESTEROL 106 mg/dL (<100); TRIGLYCERIDES 76 mg/dL (30-150)
[2021-11-28] MEDS ORDERED: ACETAMINOPHEN 325 MG TABLET PO PRN (17:00)
[2021-11-28] MEDS ORDERED: QUEtiapine FUMARATE 100 MG TABLET PO SCH (18:00)
[2021-11-28] MEDS: POTASSIUM CHLORIDE 10 MEQ TAB.PRT.SR PO SCH (18:08)
--- NOTE | 2021-11-28 18:56 | NUR ---
Closing Notes: Pt A/Ox4 resting in chair. No s/s of respiratory or cardiac distress, L hand IV site is clean dry and intact with ordered fluids running. Safety precautions in place, call light with in reach, will endorse to fast food shift supervisor.
[2021-11-28] MEDS: FAMOTIDINE 20 MG TABLET PO SCH (21:40)
[2021-11-28] MEDS: FLUoxetine HCL 20 MG CAPSULE (PROzac) PO SCH (21:41)
[2021-11-28] MEDS: CARVEDILOL 12.5 MG TABLET (COREG) PO SCH (21:41)
[2021-11-28] MEDS ORDERED: TEMAZEPAM 7.5 MG CAPSULE PO PRN (22:00)
--- NOTE | 2021-11-28 22:30 | NUR ---
PT C/O RESTLESSNESS AND NOT BEING ABLE TO SLEEP. PTREQUESTED A SLEEPING AID. PT MEDICATED PER EMAR.
[2021-11-29] VITALS: BP_SYST 100
--- NOTE | 2021-11-29 00:30 | NUR ---
PT IN BED ASLEEP WITH BIPAP ON. PT APPEARS TO BE COMFORTABLE. PT IS NO LONGER RESTLESS AT THIS TIME. WILL CONTINUE TO MONITOR
[2021-11-29 02:42] LABS: BASOPHILS # (AUTO) 0.1 K/uL (0.0-0.2); BASOPHILS % (AUTO) 1.4 % (0.0-2.0); EOSINOPHILS # (AUTO) 0.3 K/uL (0.0-0.4); EOSINOPHILS % (AUTO) 4.4 % (0.0-4.0); HEMATOCRIT 35.3 % (36-54); HEMOGLOBIN 12.2 g/dL (14.0-18.0); LYMPHOCYTES % (AUTO) 25.7 % (20.5-51.5); MEAN CORPUSCULAR HEMOGLOBIN 31 pg (27-31); MEAN CORPUSCULAR HGB CONC 35 % (32-36); MEAN CORPUSCULAR VOLUME 91 fL (79.0-98.0); MONOCYTES # (AUTO) 0.9 K/uL (0.0-1.0); MONOCYTES % (AUTO) 12.1 % (1.7-9.3); NEUTROPHILS # (AUTO) 4.3 K/uL (1.8-7.7); NEUTROPHILS % (AUTO) 56.4 % (40.0-70.0); PLATELET COUNT (AUTO) 179 K/uL (130-430); RED CELL DISTRIBUTION WIDTH 15.2 % (9.0-15.0); WHITE BLOOD COUNT (AUTO) 7.6 K/uL (4.8-10.8)
[2021-11-29 02:54] LABS: CALCIUM 7.9 mg/dL (8.4-11.0); CREATININE 0.94 mg/dL (0.55-1.30); POTASSIUM 3.5 mmol/L (3.5-5.1)
[2021-11-29 03:02] LABS: ALBUMIN 3.1 g/dL (3.4-4.8); TOTAL BILIRUBIN 0.6 mg/dL (0.0-1.0)
--- NOTE | 2021-11-29 06:58 | NUR ---
PT SLEPT THROUGH THE NIGHT ONCE THE SLEEPING AID TOOK AFFECT. PT HAS RESTLESS LEGS EVERY AT TIMES. BIPAP IS STILL CURRENTLY ON. BED ALARM IS ON DUE TO SLEEPING AID. ALL OTHER NEEDS MEET AT THIS TIME. PT MAY BE HAVING ALCOHOL WITHDRAWS WILL ENDORSE CARE TO ONCOMING NURSE
[2021-11-29 08:00] VITALS: BP_SYST 115
--- NOTE | 2021-11-29 08:00 | NUR ---
Morning notes: Pt A/Ox4 resting in bed. No s/s of respiratory or cardiac distress, L hand IV site is clean dry and intact with ordered fluids running. Safety precautions in place, call light with in reach, will continue to monitor.
[2021-11-29] MEDS ORDERED: THIAMINE HCL 100 MG TABLET PO SCH (09:00)
[2021-11-29] MEDS ORDERED: ASPIRIN 81 MG TABLET(ECOTRIN) PO SCH (09:00)
[2021-11-29] MEDS ORDERED: FOLIC ACID 1 MG TABLET PO SCH (09:00)
[2021-11-29] MEDS ORDERED: ATORVASTATIN 20 MG TABLET PO SCH (09:00)
[2021-11-29] MEDS: FLUoxetine HCL 20 MG CAPSULE (PROzac) PO SCH (10:20)
[2021-11-29] MEDS: PANTOPRAZOLE SODIUM 40 MG/VIAL (PROTONIX) IVP SCH (10:20)
[2021-11-29] MEDS: FAMOTIDINE 20 MG TABLET PO SCH (10:21)
[2021-11-29] MEDS: CARVEDILOL 12.5 MG TABLET (COREG) PO SCH (10:21)
[2021-11-29] MEDS: POTASSIUM CHLORIDE 10 MEQ TAB.PRT.SR PO SCH (10:21)
--- NOTE | 2021-11-29 14:41 | NUR ---
Discharge Planning: DCP called [facility] [phone] spoke to Armando CHEUNG requested name of patients home health. Armando was in a meeting and will call back with information. RODRIGOP to follow up Addendum: 11/29/21 at 1637 by Shyann Thapa DP Patient has [facility] P#[phone] Saeid P#[phone] Rebecca HURD
[2021-11-29 16:12] VITALS: BP_SYST 140
== END 2021-11-29 16:41 | disposition home health service (06) | DRG 189 ==
LOC: SED 22:47 → STU 11-28 03:10
PROVIDERS: ADMIT Internal Medicine; ATTEND Internal Medicine
PROC: 5A09357 Assistance with Respiratory Ventilation, Less than 24 Consecutive Hours, Continuous Positive Airway Pressure (ICD-10-PCS; principal; 2021-11-28)
DX: J96.20 Acute and chronic respiratory failure, unspecified whether with hypoxia or hypercapnia (principal); J44.9 Chronic obstructive pulmonary disease, unspecified; I10 Essential (primary) hypertension; G47.33 Obstructive sleep apnea (adult) (pediatric); F32.A Depression, unspecified; F41.9 Anxiety disorder, unspecified; E66.9 Obesity, unspecified; F10.10 Alcohol abuse, uncomplicated; Y90.9 Presence of alcohol in blood, level not specified; E78.5 Hyperlipidemia, unspecified; Z20.822 Contact with and (suspected) exposure to COVID-19; Z79.84 Long term (current) use of oral hypoglycemic drugs; Z79.899 Other long term (current) drug therapy; Z68.33 Body mass index [BMI] 33.0-33.9, adult; Z79.82 Long term (current) use of aspirin
CPT/HCPCS: 36415; 71045; 80053; 80061; 83880; 84443; 84484; 85025; 85379; 85610-TC; 93005; 93970; 94660; 96361; 96374; 99285; C9113; G0378; G0482; J2405

== ENCOUNTER 2022-07-23 15:41 | Outpatient (CLI) | payer BC ==
[~2022-07-23 15:41] MED LIST changes: +COR12.5 PO; -COR6.25 PO; -FURO-150 PO; +LIP40 PO; -Lactulose PO; +QUET200T PO; -SER100 PO
[2022-07-23 16:42] LABS: BASOPHILS # (AUTO) 0.1 K/uL (0.0-0.2); BASOPHILS % (AUTO) 0.8 % (0.0-2.0); EOSINOPHILS # (AUTO) 0.3 K/uL (0.0-0.4); EOSINOPHILS % (AUTO) 3.4 % (0.0-4.0); HEMATOCRIT 36.5 % (36-54); HEMOGLOBIN 12.2 g/dL (14.0-18.0); LYMPHOCYTES # (AUTO) 2.2 K/uL (1.0-5.5); LYMPHOCYTES % (AUTO) 28.1 % (20.5-51.5); MEAN CORPUSCULAR HEMOGLOBIN 31 pg (27-31); MEAN CORPUSCULAR HGB CONC 33 % (32-36); MEAN CORPUSCULAR VOLUME 91 fL (79.0-98.0); MONOCYTES # (AUTO) 0.8 K/uL (0.0-1.0); MONOCYTES % (AUTO) 10.1 % (1.7-9.3); NEUTROPHILS # (AUTO) 4.4 K/uL (1.8-7.7); NEUTROPHILS % (AUTO) 57.6 % (40.0-70.0); PLATELET COUNT (AUTO) 169 K/uL (130-430); RED CELL DISTRIBUTION WIDTH 15.2 % (9.0-15.0); WHITE BLOOD COUNT (AUTO) 7.7 K/uL (4.8-10.8)
[2022-07-23 16:47] LABS: BILIRUBIN,URINE NEGATIVE (NEGATIVE); BLOOD, URINE NEGATIVE (NEGATIVE); CLARITY/URINE CLEAR (CLEAR); COLOR,URINE YELLOW (YELLOW); GLUCOSE,URINE NEGATIVE (NEGATIVE); KETONES,URINE NEGATIVE (NEGATIVE); LEUKOCYTE ESTERASE ,URINE NEGATIVE (NEGATIVE); NITRITE, URINE NEGATIVE (NEGATIVE); PROTEIN URINE NEGATIVE (NEGATIVE); UROBILINOGEN,URINE 0.2 (0.2-1.0)
[2022-07-23 17:14] LABS: ALBUMIN 3.9 g/dL (3.4-4.8); CALCIUM 9.2 mg/dL (8.4-11.0); CREATININE 1.16 mg/dL (0.55-1.30); THYROID STIMULATING HORMONE 2.27 uIu/mL (0.34-4.82); TOTAL BILIRUBIN 0.6 mg/dL (0.0-1.0)
== END 2022-07-23 18:47 | disposition home or self-care (01) ==
LOC: SLB 15:41
PROVIDERS: ATTEND Internal Medicine
DX: I10 Essential (primary) hypertension (principal); J44.9 Chronic obstructive pulmonary disease, unspecified; J98.6 Disorders of diaphragm; E66.9 Obesity, unspecified; N40.1 Benign prostatic hyperplasia with lower urinary tract symptoms; R10.0 Acute abdomen; E03.9 Hypothyroidism, unspecified
CPT/HCPCS: 36415; 80053; 80061; 81003; 83037; 83690; 84153; 84443; 85025

== ENCOUNTER 2022-10-09 13:30 | Outpatient (CLI) | payer BC | END 2022-10-09 20:52 | disposition home or self-care (01) | LOC: SUS 13:30 | PROVIDERS: ATTEND Internal Medicine | DX: K80.20 Calculus of gallbladder without cholecystitis without obstruction (principal); N32.89 Other specified disorders of bladder | CPT/HCPCS: 76700-TC ==

== ENCOUNTER 2023-01-27 15:51 | Inpatient (IN) | payer BC ==
[~2023-01-27] VITALS: Ht 182.9 cm; Wt 130.4 kg
[2023-01-27 15:55] VITALS: BP_SYST 144; PULSE 96; RESP 20; TEMP 98; O2SAT 97
[2023-01-27] MEDS ORDERED: methylPREDNISolone SOD SUCC/PF 62.5 MG/ML VIAL IVP ONE (16:00)
[2023-01-27] MEDS ORDERED: DIPHENHYDRAMINE INJ 50 MG/ML VIAL IVP ONE (16:00)
[2023-01-27] MEDS ORDERED: ALBUTEROL SULFATE 0.083% 2.5 MG/3 ML VIAL.NEB INH ONE (16:00)
[2023-01-27] MEDS ORDERED: MAGNESIUM SULFATE 50 ML IV ONE (16:00)
[2023-01-27 16:49] LABS: BASOPHILS # (AUTO) 0.1 K/uL (0.0-0.2); BASOPHILS % (AUTO) 0.9 % (0.0-2.0); EOSINOPHILS # (AUTO) 0.7 K/uL (0.0-0.4); EOSINOPHILS % (AUTO) 7.7 % (0.0-4.0); HEMATOCRIT 37.8 % (36-54); HEMOGLOBIN 12.4 g/dL (14.0-18.0); LYMPHOCYTES # (AUTO) 1.7 K/uL (1.0-5.5); LYMPHOCYTES % (AUTO) 17.4 % (20.5-51.5); MEAN CORPUSCULAR HEMOGLOBIN 30 pg (27-31); MEAN CORPUSCULAR HGB CONC 33 % (32-36); MEAN CORPUSCULAR VOLUME 91 fL (79.0-98.0); MONOCYTES # (AUTO) 0.8 K/uL (0.0-1.0); MONOCYTES % (AUTO) 8.6 % (1.7-9.3); NEUTROPHILS # (AUTO) 6.3 K/uL (1.8-7.7); NEUTROPHILS % (AUTO) 65.4 % (40.0-70.0); PLATELET COUNT (AUTO) 181 K/uL (130-430); RED BLOOD CELL COUNT(AUTO) 4.14 MIL/uL (4.2-6.2); RED CELL DISTRIBUTION WIDTH 15.4 % (9.0-15.0); WHITE BLOOD COUNT (AUTO) 9.6 K/uL (4.8-10.8)
[2023-01-27 17:09] LABS: ANION GAP 13 (5-15); CALCIUM 8.5 mg/dL (8.4-11.0); CARBON DIOXIDE 27 mmol/L (23-29); CHLORIDE 96 mmol/L (98-107); CREATININE 1.02 mg/dL (0.55-1.30); GFR AFRICAN AMERICAN 95 mL/min (>90); GLUCOSE 105 mg/dL (74-106); POTASSIUM 3.9 mmol/L (3.5-5.1); SODIUM SERUM 136 mmol/L (136-145); UREA NITROGEN, BLOOD 21 mg/dL (8-21)
[2023-01-27 17:10] LABS: GFR NON AFRICAN-AMERICAN 78 mL/min (>90)
[2023-01-27 17:12] LABS: BLOOD GAS HCO3 26.3 mmol/L (21.0-27.0); BLOOD GAS PCO2 44.3 mmHg (32.0-45.0); BLOOD GAS PH 7.391 (7.350-7.450); BLOOD GAS PO2 92.3 mmHg (75.0-100.0)
[2023-01-27 17:16] LABS: ALANINE AMINOTRANSFERASE 42 U/L (12-78); ALBUMIN 3.6 g/dL (3.4-4.8); ASPARTATE AMINOTRANSFERASE 64 U/L (10-37); TOTAL BILIRUBIN 0.6 mg/dL (0.0-1.0); TOTAL PROTEIN, SERUM 7.1 g/dL (6.4-8.3)
[2023-01-27] MEDS: IPRATROPIUM BROM 0.5 MG/2.5 ML VIAL.NEB (ATROVENT) INH SCH (19:00)
[2023-01-27] MEDS ORDERED: PRO40 PO (20:30)
[2023-01-27] MEDS ORDERED: CHOL500051 PO (20:30)
[2023-01-27] MEDS ORDERED: MULT-1198 PO (20:30)
[2023-01-27] MEDS ORDERED: LISI10TA29 PO (20:30)
[2023-01-27] MEDS ORDERED: TEMA30CA5 PO (20:30)
[2023-01-27] MEDS ORDERED: CYAN100097 PO (20:30)
[2023-01-27] MEDS ORDERED: CYM30 PO (20:30)
[2023-01-27 21:38] VITALS: BP_SYST 135; PULSE 96; O2SAT 95
[2023-01-27 21:48] VITALS: BP_SYST 159; PULSE 98; RESP 22; TEMP 97.3
[2023-01-27 22:15] VITALS: O2SAT 97
[2023-01-27 23:00] VITALS: PULSE 59
[2023-01-27 23:19] VITALS: PULSE 103
[2023-01-27] MEDS ORDERED: DULoxetine HCL 30 MG CAPSULE.DR (CYMBALTA) PO SCH (23:30)
[2023-01-28] VITALS (14 sets, daily range): BP systolic 119–158; PULSE 70–105; RESP 16–24; TEMP 97–98.2; O2SAT 93–99
[2023-01-28] MEDS ORDERED: methylPREDNISolone SOD SUCC/PF 62.5 MG/ML VIAL ONE (00:13)
[2023-01-28] MEDS: methylPREDNISolone SOD SUCC/PF 62.5 MG/ML VIAL IVP SCH ×4 (00:20→18:13)
[2023-01-28] MEDS: DIPHENHYDRAMINE HCL 25 MG CAPSULE PO PRN ×3 (00:23→18:23)
[2023-01-28] MEDS: QUEtiapine FUMARATE 100 MG TABLET PO SCH ×2 (00:23→21:08)
[2023-01-28] MEDS: TEMAZEPAM 15 MG CAPSULE PO SCH ×2 (00:24→21:09)
[2023-01-28] MEDS: ATORVASTATIN 20 MG TABLET PO SCH ×2 (00:24→21:09)
[2023-01-28] MEDS: CARVEDILOL 12.5 MG TABLET (COREG) PO SCH ×3 (00:25→21:08)
[2023-01-28 06:25] LABS: BASOPHILS % (AUTO) 0.2 % (0.0-2.0); EOSINOPHILS % (AUTO) 0.1 % (0.0-4.0); HEMATOCRIT 35.6 % (36-54); HEMOGLOBIN 11.9 g/dL (14.0-18.0); LYMPHOCYTES # (AUTO) 0.8 K/uL (1.0-5.5); LYMPHOCYTES % (AUTO) 11.5 % (20.5-51.5); MEAN CORPUSCULAR HEMOGLOBIN 31 pg (27-31); MEAN CORPUSCULAR HGB CONC 34 % (32-36); MEAN CORPUSCULAR VOLUME 92 fL (79.0-98.0); MONOCYTES # (AUTO) 0.1 K/uL (0.0-1.0); MONOCYTES % (AUTO) 0.7 % (1.7-9.3); NEUTROPHILS # (AUTO) 6.2 K/uL (1.8-7.7); NEUTROPHILS % (AUTO) 87.5 % (40.0-70.0); PLATELET COUNT (AUTO) 165 K/uL (130-430); RED BLOOD CELL COUNT(AUTO) 3.87 MIL/uL (4.2-6.2); RED CELL DISTRIBUTION WIDTH 15.5 % (9.0-15.0); WHITE BLOOD COUNT (AUTO) 7.1 K/uL (4.8-10.8)
[2023-01-28 07:05] LABS: ALBUMIN 3.3 g/dL (3.4-4.8); CALCIUM 8.3 mg/dL (8.4-11.0); CREATININE 0.9 mg/dL (0.55-1.30); POTASSIUM 3.9 mmol/L (3.5-5.1); TOTAL BILIRUBIN 0.4 mg/dL (0.0-1.0); TOTAL PROTEIN, SERUM 6.8 g/dL (6.4-8.3)
[2023-01-28] MEDS: ALBUTEROL SULFATE 0.083% 2.5 MG/3 ML VIAL.NEB INH PRN ×2 (07:37→13:54)
[2023-01-28] MEDS: IPRATROPIUM BROM 0.5 MG/2.5 ML VIAL.NEB (ATROVENT) INH SCH ×3 (07:37→20:39)
[2023-01-28] MEDS ORDERED: CARVEDILOL 12.5 MG TABLET (COREG) PO SCH (09:00)
[2023-01-28] MEDS ORDERED: TEMAZEPAM 15 MG CAPSULE PO SCH (09:00)
[2023-01-28] MEDS ORDERED: NON-FORMULARY MEDICATION (Cholecalciferol (Vitamin D3) (Vitamin D3) 5,000 UNITS) PO SCH (09:00)
[2023-01-28] MEDS ORDERED: ATORVASTATIN 20 MG TABLET PO SCH (09:00)
[2023-01-28] MEDS ORDERED: ASPIRIN 81 MG PO SCH (09:00)
[2023-01-28] MEDS: MULTIVITS,CA,MINERALS/IRON/FA 1 TABLET PO SCH (09:53)
[2023-01-28] MEDS: LISINOPRIL 10 MG TABLET (PRINIVIL) PO SCH (09:55)
[2023-01-28] MEDS: PANTOPRAZOLE SODIUM 40 MG TAB PO SCH (09:55)
[2023-01-28] MEDS: DULoxetine HCL 30 MG CAPSULE.DR (CYMBALTA) PO SCH ×2 (09:56→21:09)
[2023-01-28] MEDS: CYANOCOBALAMIN (VITAMIN B-12) 1,000 MCG TABLET PO SCH (09:57)
[2023-01-28] MEDS: cefTRIAXone 1 GM in D5W 50 ML IV SCH (10:43)
[2023-01-28] MEDS: AZITHROMYCIN 250 MG in NS 250 ML IV SCH (11:56)
[2023-01-28] MEDS ORDERED: QUEtiapine FUMARATE 100 MG TABLET PO SCH (18:00)
[2023-01-29] VITALS (14 sets, daily range): BP systolic 146–156; PULSE 74–103; RESP 18–20; TEMP 96.7–97.2; O2SAT 96–99
[2023-01-29] MEDS: methylPREDNISolone SOD SUCC/PF 62.5 MG/ML VIAL IVP SCH ×4 (01:02→18:00)
[2023-01-29] MEDS: DIPHENHYDRAMINE HCL 25 MG CAPSULE PO PRN ×2 (01:02→15:58)
[2023-01-29] MEDS: IPRATROPIUM BROM 0.5 MG/2.5 ML VIAL.NEB (ATROVENT) INH SCH ×4 (01:04→20:05)
[2023-01-29] MEDS: ALBUTEROL SULFATE 0.083% 2.5 MG/3 ML VIAL.NEB INH PRN ×2 (07:07→13:40)
[2023-01-29 08:32] LABS: BLOOD GAS BASE EXCESS 0.9 mmol/L (-3.0-3.0); BLOOD GAS HCO3 26.5 mmol/L (21.0-27.0); BLOOD GAS PCO2 45.9 mmHg (32.0-45.0); BLOOD GAS PO2 84.9 mmHg (75.0-100.0)
[2023-01-29 08:33] LABS: ABG O2 SAT% ESTIMATE 96.2 % (94.0-100.0); ALLEN'S TEST POSITIVE (P)
[2023-01-29] MEDS: CARVEDILOL 12.5 MG TABLET (COREG) PO SCH ×2 (09:43→21:59)
[2023-01-29] MEDS: DULoxetine HCL 30 MG CAPSULE.DR (CYMBALTA) PO SCH ×2 (09:43→21:58)
[2023-01-29] MEDS: LISINOPRIL 10 MG TABLET (PRINIVIL) PO SCH (09:43)
[2023-01-29] MEDS: ASPIRIN 81 MG TABLET(ECOTRIN) PO SCH (09:44)
[2023-01-29] MEDS: PANTOPRAZOLE SODIUM 40 MG TAB PO SCH (09:44)
[2023-01-29] MEDS: MULTIVITS,CA,MINERALS/IRON/FA 1 TABLET PO SCH (09:44)
[2023-01-29] MEDS: CYANOCOBALAMIN (VITAMIN B-12) 1,000 MCG TABLET PO SCH (09:44)
[2023-01-29] MEDS: CHOLECALCIFEROL (VITAMIN D3) 5,000 UNIT TABLET PO SCH (09:44)
[2023-01-29] MEDS: cefTRIAXone 1 GM in D5W 50 ML IV SCH (10:09)
[2023-01-29] MEDS: AZITHROMYCIN 250 MG in NS 250 ML IV SCH (11:43)
[2023-01-29] MEDS ORDERED: PERMETHRIN 5% 60 GM CREAM.GM. TP ONE (18:00)
[2023-01-29] MEDS: ATORVASTATIN 20 MG TABLET PO SCH (21:57)
[2023-01-29] MEDS: QUEtiapine FUMARATE 100 MG TABLET PO SCH (21:58)
[2023-01-29] MEDS: TEMAZEPAM 15 MG CAPSULE PO SCH (21:58)
[2023-01-29] MEDS: CLOTRIMAZOLE/BETAMET DIPROP 15 GM TUBE TP SCH (22:00)
[2023-01-30] VITALS (13 sets, daily range): BP systolic 135–156; PULSE 75–96; RESP 16–19; TEMP 96.8–97.5; O2SAT 96–98
[2023-01-30] MEDS: DIPHENHYDRAMINE HCL 25 MG CAPSULE PO PRN (00:31)
[2023-01-30] MEDS: IPRATROPIUM BROM 0.5 MG/2.5 ML VIAL.NEB (ATROVENT) INH SCH ×3 (01:11→13:08)
[2023-01-30] MEDS ORDERED: methylPREDNISolone SOD SUCC/PF 62.5 MG/ML VIAL ONE ×2 (02:33→05:50)
[2023-01-30] MEDS: methylPREDNISolone SOD SUCC/PF 62.5 MG/ML VIAL IVP SCH ×4 (02:53→18:54)
[2023-01-30 06:29] LABS: BASOPHILS % (AUTO) 0.1 % (0.0-2.0); EOSINOPHILS % (AUTO) 0.1 % (0.0-4.0); HEMATOCRIT 35.1 % (36-54); HEMOGLOBIN 11.6 g/dL (14.0-18.0); LYMPHOCYTES # (AUTO) 1.1 K/uL (1.0-5.5); LYMPHOCYTES % (AUTO) 8.5 % (20.5-51.5); MEAN CORPUSCULAR HEMOGLOBIN 30 pg (27-31); MEAN CORPUSCULAR HGB CONC 33 % (32-36); MEAN CORPUSCULAR VOLUME 92 fL (79.0-98.0); MONOCYTES # (AUTO) 0.6 K/uL (0.0-1.0); MONOCYTES % (AUTO) 4.4 % (1.7-9.3); NEUTROPHILS # (AUTO) 11.1 K/uL (1.8-7.7); NEUTROPHILS % (AUTO) 86.9 % (40.0-70.0); PLATELET COUNT (AUTO) 165 K/uL (130-430); RED CELL DISTRIBUTION WIDTH 15.7 % (9.0-15.0); WHITE BLOOD COUNT (AUTO) 12.8 K/uL (4.8-10.8)
[2023-01-30 06:59] LABS: CALCIUM 8.6 mg/dL (8.4-11.0); CREATININE 1.03 mg/dL (0.55-1.30); POTASSIUM 3.9 mmol/L (3.5-5.1)
[2023-01-30] MEDS: ASPIRIN 81 MG TABLET(ECOTRIN) PO SCH (09:48)
[2023-01-30] MEDS: MULTIVITS,CA,MINERALS/IRON/FA 1 TABLET PO SCH (09:49)
[2023-01-30] MEDS: CHOLECALCIFEROL (VITAMIN D3) 5,000 UNIT TABLET PO SCH (09:49)
[2023-01-30] MEDS: DULoxetine HCL 30 MG CAPSULE.DR (CYMBALTA) PO SCH (09:49)
[2023-01-30] MEDS: PANTOPRAZOLE SODIUM 40 MG TAB PO SCH (09:49)
[2023-01-30] MEDS: CARVEDILOL 12.5 MG TABLET (COREG) PO SCH (09:50)
[2023-01-30] MEDS: LISINOPRIL 10 MG TABLET (PRINIVIL) PO SCH (09:50)
[2023-01-30] MEDS: CYANOCOBALAMIN (VITAMIN B-12) 1,000 MCG TABLET PO SCH (09:51)
[2023-01-30] MEDS: CLOTRIMAZOLE/BETAMET DIPROP 15 GM TUBE TP SCH (09:52)
[2023-01-30] MEDS: cefTRIAXone 1 GM in D5W 50 ML IV SCH (09:53)
[2023-01-30] MEDS: AZITHROMYCIN 250 MG in NS 250 ML IV SCH (14:45)
== END 2023-01-30 19:50 | disposition home or self-care (01) | DRG 191 ==
LOC: SED 15:51 → SMU 18:28
PROVIDERS: ADMIT Internal Medicine; ATTEND Internal Medicine
PROC: 5A09357 Assistance with Respiratory Ventilation, Less than 24 Consecutive Hours, Continuous Positive Airway Pressure (ICD-10-PCS; principal; 2023-01-27)
PROC: 5A09357 Assistance with Respiratory Ventilation, Less than 24 Consecutive Hours, Continuous Positive Airway Pressure (ICD-10-PCS; 2023-01-28)
PROC: 5A09357 Assistance with Respiratory Ventilation, Less than 24 Consecutive Hours, Continuous Positive Airway Pressure (ICD-10-PCS; 2023-01-29)
PROC: 5A09357 Assistance with Respiratory Ventilation, Less than 24 Consecutive Hours, Continuous Positive Airway Pressure (ICD-10-PCS; 2023-01-30)
DX: J44.1 Chronic obstructive pulmonary disease with (acute) exacerbation (principal); J98.11 Atelectasis; E78.5 Hyperlipidemia, unspecified; I10 Essential (primary) hypertension; L85.3 Xerosis cutis; E66.9 Obesity, unspecified; T78.40XA Allergy, unspecified, initial encounter; G47.33 Obstructive sleep apnea (adult) (pediatric); X58.XXXA Exposure to other specified factors, initial encounter; Z88.8 Allergy status to other drugs, medicaments and biological substances; Z79.899 Other long term (current) drug therapy; Z90.2 Acquired absence of lung [part of]; Z68.39 Body mass index [BMI] 39.0-39.9, adult
CPT/HCPCS: 36415; 36600; 71045; 80048; 80053; 82803; 83605; 84484; 85025; 87040; 87210-TC; 94640; 94660; 94760; 96365; 96375; 97163-GP; 99285; J0456; J0696; J1200; J2930; J3475; J7042; J7050; J7060; Q0163

== ENCOUNTER 2023-03-04 14:09 | Inpatient (IN) | payer BC, OTHER ==
[2023-03-04] VITALS (12 sets, daily range): BP systolic 113–151; PULSE 93–138; RESP 20–35; TEMP 97.1–99.3; O2SAT 94–100
[~2023-03-04] VITALS: Ht 182.9 cm; Wt 127.0 kg
[~2023-03-04 14:09] MED LIST changes: +CHOL500051 PO; +CYAN100097 PO; +CYM30 PO; -FAMO20TA8 PO; -IPRA3AMP9 INH; +LISI10TA29 PO; +MULT-1198 PO; -PRO20 PO; +PRO40 PO; +TEMA30CA5 PO
[2023-03-04 15:20] LABS: BASOPHILS % (AUTO) 0.4 % (0.0-2.0); EOSINOPHILS # (AUTO) 0.1 K/uL (0.0-0.4); EOSINOPHILS % (AUTO) 0.5 % (0.0-4.0); HEMATOCRIT 42.5 % (36-54); HEMOGLOBIN 14.2 g/dL (14.0-18.0); LYMPHOCYTES # (AUTO) 1.9 K/uL (1.0-5.5); MEAN CORPUSCULAR HEMOGLOBIN 31 pg (27-31); MEAN CORPUSCULAR HGB CONC 34 % (32-36); MEAN CORPUSCULAR VOLUME 92 fL (79.0-98.0); MONOCYTES # (AUTO) 1.2 K/uL (0.0-1.0); MONOCYTES % (AUTO) 9.8 % (1.7-9.3); NEUTROPHILS # (AUTO) 9.4 K/uL (1.8-7.7); NEUTROPHILS % (AUTO) 74.3 % (40.0-70.0); PLATELET COUNT (AUTO) 200 K/uL (130-430); RED BLOOD CELL COUNT(AUTO) 4.62 MIL/uL (4.2-6.2); RED CELL DISTRIBUTION WIDTH 15.1 % (9.0-15.0); WHITE BLOOD COUNT (AUTO) 12.6 K/uL (4.8-10.8)
[2023-03-04 16:00] LABS: COVID19 ANTIGEN SOFIA FIA NEGATIVE (NEGATIVE)
[2023-03-04 16:04] LABS: INFLUENZA TYPE A Negative (NEGATIVE); INFLUENZA TYPE B NEGATIVE (NEGATIVE)
[2023-03-04 16:15] LABS: ACETONE, SERUM NEGATIVE (NEGATIVE)
[2023-03-04 16:16] LABS: ABG O2 SAT% ESTIMATE 99.3 % (94.0-100.0); BLOOD GAS BASE EXCESS 5.3 mmol/L (-3.0-3.0); BLOOD GAS HCO3 26.4 mmol/L (21.0-27.0); BLOOD GAS PO2 152.3 mmHg (75.0-100.0)
[2023-03-04 16:17] LABS: ANION GAP 7 (5-15); CALCIUM 8.2 mg/dL (8.4-11.0); CARBON DIOXIDE 31 mmol/L (23-29); CHLORIDE 91 mmol/L (98-107); CREATININE 1.78 mg/dL (0.55-1.30); GFR AFRICAN AMERICAN 50 mL/min (>90); GLUCOSE 137 mg/dL (74-106); POTASSIUM 4.1 mmol/L (3.5-5.1); SODIUM SERUM 129 mmol/L (136-145); UREA NITROGEN, BLOOD 27 mg/dL (8-21)
[2023-03-04 16:19] LABS: BLOOD GAS PH 7.577 (7.350-7.450)
[2023-03-04 16:20] LABS: ALLEN'S TEST POSITIVE (P)
[2023-03-04 16:25] LABS: ALANINE AMINOTRANSFERASE 52 U/L (12-78); ALBUMIN 3.8 g/dL (3.4-4.8); ASPARTATE AMINOTRANSFERASE 67 U/L (10-37); TOTAL BILIRUBIN 1.6 mg/dL (0.0-1.0); TOTAL PROTEIN, SERUM 7.1 g/dL (6.4-8.3)
[2023-03-04] MEDS ORDERED: NACL 0.9% 1,000 ML IV ONE (16:45)
[2023-03-04] MEDS ORDERED: IPRATROPIUM/ALBUTEROL SULFATE 3 ML AMPUL.NEB (DUONEB) INH PRN (18:30)
[2023-03-04] MEDS ORDERED: QUEtiapine FUMARATE 100 MG TABLET PO ONE (19:00)
[2023-03-04] MEDS ORDERED: NACL 0.9% 1,000 ML IV SCH (19:15)
[2023-03-04] MEDS: IPRATROPIUM/ALBUTEROL SULFATE 3 ML AMPUL.NEB (DUONEB) INH SCH (19:46)
[2023-03-04] MEDS: PIPERACILLIN/TAZO 3.375/DEX-IS 50 ML IV SCH (20:56)
[2023-03-04] MEDS ORDERED: QUEtiapine FUMARATE 100 MG TABLET ONE ×2 (21:02→21:09)
[2023-03-04] MEDS: CARVEDILOL 12.5 MG TABLET (COREG) PO SCH (21:06)
[2023-03-04] MEDS: DULoxetine HCL 30 MG CAPSULE.DR (CYMBALTA) PO SCH (21:06)
[2023-03-04] MEDS: TEMAZEPAM 15 MG CAPSULE PO SCH (21:09)
[2023-03-05] VITALS (35 sets, daily range): BP systolic 90–150; PULSE 75–127; RESP 13–33; TEMP 97.8–98.4; O2SAT 93–100
[2023-03-05] MEDS ORDERED: ACETAMINOPHEN 325 MG TABLET PO PRN (00:15)
[2023-03-05] MEDS ORDERED: ACETAMINOPHEN 325 MG TABLET ONE (00:28)
[2023-03-05] MEDS: traMADol HCL HCL 50 MG TABLET (ULTRAM) PO PRN ×5 (02:09→22:02)
[2023-03-05] MEDS: PIPERACILLIN/TAZO 3.375/DEX-IS 50 ML IV SCH ×4 (02:35→20:24)
[2023-03-05 05:12] LABS: BASOPHILS # (AUTO) 0.1 K/uL (0.0-0.2); EOSINOPHILS # (AUTO) 0.1 K/uL (0.0-0.4); EOSINOPHILS % (AUTO) 1.6 % (0.0-4.0); HEMATOCRIT 36.1 % (36-54); HEMOGLOBIN 12.1 g/dL (14.0-18.0); LYMPHOCYTES # (AUTO) 2.1 K/uL (1.0-5.5); LYMPHOCYTES % (AUTO) 24.1 % (20.5-51.5); MEAN CORPUSCULAR HEMOGLOBIN 31 pg (27-31); MEAN CORPUSCULAR HGB CONC 34 % (32-36); MEAN CORPUSCULAR VOLUME 93 fL (79.0-98.0); MONOCYTES # (AUTO) 0.7 K/uL (0.0-1.0); MONOCYTES % (AUTO) 8.7 % (1.7-9.3); NEUTROPHILS # (AUTO) 5.5 K/uL (1.8-7.7); NEUTROPHILS % (AUTO) 64.6 % (40.0-70.0); PLATELET COUNT (AUTO) 129 K/uL (130-430); RED BLOOD CELL COUNT(AUTO) 3.88 MIL/uL (4.2-6.2); RED CELL DISTRIBUTION WIDTH 14.6 % (9.0-15.0); WHITE BLOOD COUNT (AUTO) 8.5 K/uL (4.8-10.8)
[2023-03-05 05:32] LABS: ALBUMIN 3.2 g/dL (3.4-4.8); CALCIUM 7.4 mg/dL (8.4-11.0); CREATININE 1.93 mg/dL (0.55-1.30); PHOSPHORUS 2.4 mg/dL (2.7-4.5); POTASSIUM 3.1 mmol/L (3.5-5.1); TOTAL BILIRUBIN 1.1 mg/dL (0.0-1.0); TOTAL PROTEIN, SERUM 6.1 g/dL (6.4-8.3)
[2023-03-05] MEDS: IPRATROPIUM/ALBUTEROL SULFATE 3 ML AMPUL.NEB (DUONEB) INH SCH ×4 (07:26→19:40)
[2023-03-05] MEDS ORDERED: LISINOPRIL 10 MG TABLET (PRINIVIL) PO SCH (09:00)
[2023-03-05] MEDS: CARVEDILOL 12.5 MG TABLET (COREG) PO SCH (09:00)
[2023-03-05] MEDS: CYANOCOBALAMIN (VITAMIN B-12) 1,000 MCG TABLET PO SCH (09:03)
[2023-03-05] MEDS: POTASSIUM CHLORIDE 10 MEQ TAB.PRT.SR PO SCH ×2 (09:03→17:44)
[2023-03-05] MEDS: CHOLECALCIFEROL (VITAMIN D3) 5,000 UNIT TABLET PO SCH (09:03)
[2023-03-05] MEDS: PANTOPRAZOLE SODIUM 40 MG TAB PO SCH (09:03)
[2023-03-05] MEDS: ASPIRIN 81 MG TABLET(ECOTRIN) PO SCH (09:04)
[2023-03-05] MEDS: DULoxetine HCL 30 MG CAPSULE.DR (CYMBALTA) PO SCH ×2 (09:04→20:23)
[2023-03-05] MEDS: ATORVASTATIN 20 MG TABLET PO SCH (09:04)
[2023-03-05] MEDS: MULTIVITS,CA,MINERALS/IRON/FA 1 TABLET PO SCH (09:04)
[2023-03-05] MEDS ORDERED: NS 500 ML IV ONE (11:00)
[2023-03-05] MEDS ORDERED: POTASSIUM CHLORIDE 20 MEQ TAB.PRT.SR PO ONE (11:30)
[2023-03-05] MEDS ORDERED: FOLIC ACID 1 MG, THIAMINE HCL 100 MG, MAGNESIUM SULFATE 1 GM, MVI 10 ML in NACL 0.9% 1,... IV SCH (15:00)
[2023-03-05] MEDS: THIAMINE HCL 100 MG, MAGNESIUM SULFATE 1 GM in NS 100 ML IV SCH (15:36)
[2023-03-05] MEDS: FOLIC ACID 1 MG, MVI 10 ML in NACL 0.9% 1,000 ML IV SCH (15:37)
[2023-03-05] MEDS: QUEtiapine FUMARATE 100 MG TABLET PO SCH (17:44)
[2023-03-05] MEDS: TEMAZEPAM 15 MG CAPSULE PO SCH (20:23)
[2023-03-05] MEDS: CARVEDILOL 6.25 MG TABLET (COREG) PO SCH (20:24)
[2023-03-06] VITALS (29 sets, daily range): BP systolic 114–161; PULSE 89–111; RESP 15–28; TEMP 97.8–98.1; O2SAT 93–100
[2023-03-06] MEDS: PIPERACILLIN/TAZO 3.375/DEX-IS 50 ML IV SCH ×4 (02:20→17:28)
[2023-03-06 05:07] LABS: BASOPHILS # (AUTO) 0.1 K/uL (0.0-0.2); BASOPHILS % (AUTO) 0.9 % (0.0-2.0); EOSINOPHILS # (AUTO) 0.3 K/uL (0.0-0.4); EOSINOPHILS % (AUTO) 3.2 % (0.0-4.0); HEMATOCRIT 38.8 % (36-54); HEMOGLOBIN 12.8 g/dL (14.0-18.0); LYMPHOCYTES % (AUTO) 26.1 % (20.5-51.5); MEAN CORPUSCULAR HEMOGLOBIN 31 pg (27-31); MEAN CORPUSCULAR HGB CONC 33 % (32-36); MEAN CORPUSCULAR VOLUME 94 fL (79.0-98.0); MONOCYTES # (AUTO) 0.8 K/uL (0.0-1.0); MONOCYTES % (AUTO) 9.8 % (1.7-9.3); NEUTROPHILS # (AUTO) 4.7 K/uL (1.8-7.7); PLATELET COUNT (AUTO) 127 K/uL (130-430); RED BLOOD CELL COUNT(AUTO) 4.12 MIL/uL (4.2-6.2); RED CELL DISTRIBUTION WIDTH 14.9 % (9.0-15.0); WHITE BLOOD COUNT (AUTO) 7.8 K/uL (4.8-10.8)
[2023-03-06 05:37] LABS: ALBUMIN 3.3 g/dL (3.4-4.8); CALCIUM 7.4 mg/dL (8.4-11.0); CREATININE 1.36 mg/dL (0.55-1.30); POTASSIUM 3.6 mmol/L (3.5-5.1); TOTAL BILIRUBIN 0.8 mg/dL (0.0-1.0); TOTAL PROTEIN, SERUM 6.5 g/dL (6.4-8.3)
[2023-03-06] MEDS: IPRATROPIUM/ALBUTEROL SULFATE 3 ML AMPUL.NEB (DUONEB) INH SCH ×3 (07:31→15:40)
[2023-03-06] MEDS: DULoxetine HCL 30 MG CAPSULE.DR (CYMBALTA) PO SCH ×2 (08:30→22:04)
[2023-03-06] MEDS: ASPIRIN 81 MG TABLET(ECOTRIN) PO SCH (08:30)
[2023-03-06] MEDS: PANTOPRAZOLE SODIUM 40 MG TAB PO SCH (08:30)
[2023-03-06] MEDS: ATORVASTATIN 20 MG TABLET PO SCH (08:30)
[2023-03-06] MEDS: CHOLECALCIFEROL (VITAMIN D3) 5,000 UNIT TABLET PO SCH (08:31)
[2023-03-06] MEDS: CYANOCOBALAMIN (VITAMIN B-12) 1,000 MCG TABLET PO SCH (08:31)
[2023-03-06] MEDS: THIAMINE HCL 100 MG TABLET GT SCH (08:31)
[2023-03-06] MEDS: NEPHROVITE, (FOLIC ACID/VITAMIN B COMP W-C 1 TAB) PO SCH (08:31)
[2023-03-06] MEDS: MULTIVITS,CA,MINERALS/IRON/FA 1 TABLET PO SCH (08:39)
[2023-03-06] MEDS: POTASSIUM CHLORIDE 10 MEQ TAB.PRT.SR PO SCH ×2 (08:46→17:43)
[2023-03-06] MEDS: CARVEDILOL 6.25 MG TABLET (COREG) PO SCH (09:47)
[2023-03-06] MEDS: THIAMINE HCL 100 MG, MAGNESIUM SULFATE 1 GM in NS 100 ML IV SCH (14:59)
[2023-03-06] MEDS: FOLIC ACID 1 MG, MVI 10 ML in NACL 0.9% 1,000 ML IV SCH (15:00)
[2023-03-06] MEDS ORDERED: CARVEDILOL 12.5 MG TABLET (COREG) PO ONE (17:15)
[2023-03-06] MEDS: QUEtiapine FUMARATE 100 MG TABLET PO SCH (17:44)
[2023-03-06] MEDS: TEMAZEPAM 15 MG CAPSULE PO SCH (22:04)
[2023-03-06] MEDS: CARVEDILOL 12.5 MG TABLET (COREG) PO SCH (22:04)
[2023-03-07] VITALS (9 sets, daily range): BP systolic 111–146; PULSE 70–112; RESP 16–20; TEMP 97.4–98.5; O2SAT 94–100
[2023-03-07] MEDS: IPRATROPIUM/ALBUTEROL SULFATE 3 ML AMPUL.NEB (DUONEB) INH SCH ×5 (01:37→19:41)
[2023-03-07] MEDS: PIPERACILLIN/TAZO 3.375/DEX-IS 50 ML IV SCH ×4 (02:04→20:37)
[2023-03-07 08:49] LABS: BASOPHILS % (AUTO) 0.7 % (0.0-2.0); EOSINOPHILS # (AUTO) 0.3 K/uL (0.0-0.4); EOSINOPHILS % (AUTO) 4.4 % (0.0-4.0); HEMATOCRIT 38.5 % (36-54); HEMOGLOBIN 12.4 g/dL (14.0-18.0); LYMPHOCYTES # (AUTO) 1.4 K/uL (1.0-5.5); LYMPHOCYTES % (AUTO) 21.1 % (20.5-51.5); MEAN CORPUSCULAR HEMOGLOBIN 31 pg (27-31); MEAN CORPUSCULAR HGB CONC 32 % (32-36); MEAN CORPUSCULAR VOLUME 96 fL (79.0-98.0); MONOCYTES # (AUTO) 0.8 K/uL (0.0-1.0); MONOCYTES % (AUTO) 12.7 % (1.7-9.3); NEUTROPHILS # (AUTO) 4.1 K/uL (1.8-7.7); NEUTROPHILS % (AUTO) 61.1 % (40.0-70.0); PLATELET COUNT (AUTO) 109 K/uL (130-430); RED BLOOD CELL COUNT(AUTO) 4.01 MIL/uL (4.2-6.2); RED CELL DISTRIBUTION WIDTH 14.9 % (9.0-15.0); WHITE BLOOD COUNT (AUTO) 6.7 K/uL (4.8-10.8)
[2023-03-07 08:57] LABS: ALBUMIN 2.9 g/dL (3.4-4.8); CALCIUM 7.5 mg/dL (8.4-11.0); CREATININE 0.92 mg/dL (0.55-1.30); TOTAL BILIRUBIN 0.7 mg/dL (0.0-1.0); TOTAL PROTEIN, SERUM 6.1 g/dL (6.4-8.3)
[2023-03-07] MEDS: NEPHROVITE, (FOLIC ACID/VITAMIN B COMP W-C 1 TAB) PO SCH (09:00)
[2023-03-07] MEDS: ASPIRIN 81 MG TABLET(ECOTRIN) PO SCH (11:23)
[2023-03-07] MEDS: ATORVASTATIN 20 MG TABLET PO SCH (11:24)
[2023-03-07] MEDS: PANTOPRAZOLE SODIUM 40 MG TAB PO SCH (11:24)
[2023-03-07] MEDS: CYANOCOBALAMIN (VITAMIN B-12) 1,000 MCG TABLET PO SCH (11:25)
[2023-03-07] MEDS: MULTIVITS,CA,MINERALS/IRON/FA 1 TABLET PO SCH (11:25)
[2023-03-07] MEDS: THIAMINE HCL 100 MG TABLET GT SCH (11:26)
[2023-03-07] MEDS: CHOLECALCIFEROL (VITAMIN D3) 5,000 UNIT TABLET PO SCH (11:26)
[2023-03-07] MEDS: CARVEDILOL 12.5 MG TABLET (COREG) PO SCH ×2 (11:32→20:35)
[2023-03-07] MEDS: DULoxetine HCL 30 MG CAPSULE.DR (CYMBALTA) PO SCH ×2 (11:33→20:35)
[2023-03-07] MEDS: POTASSIUM CHLORIDE 10 MEQ TAB.PRT.SR PO SCH (11:33)
[2023-03-07] MEDS ORDERED: cloNIDine HCL 0.1 MG TABLET PO PRN (15:45)
[2023-03-07] MEDS: LORazepam 1 MG TABLET PO PRN (17:01)
[2023-03-07] MEDS: QUEtiapine FUMARATE 100 MG TABLET PO SCH (18:35)
[2023-03-07] MEDS: TEMAZEPAM 15 MG CAPSULE PO SCH (20:35)
[2023-03-07] MEDS: DOCUSATE SODIUM 100 MG CAPSULE PO SCH (20:36)
[2023-03-08] VITALS (7 sets, daily range): BP systolic 134–164; PULSE 81–96; RESP 16–18; TEMP 97.3–98.4; O2SAT 95–96
[2023-03-08] MEDS: PIPERACILLIN/TAZO 3.375/DEX-IS 50 ML IV SCH ×2 (02:16→08:54)
[2023-03-08 06:43] LABS: BASOPHILS % (AUTO) 0.7 % (0.0-2.0); EOSINOPHILS # (AUTO) 0.3 K/uL (0.0-0.4); EOSINOPHILS % (AUTO) 4.9 % (0.0-4.0); HEMATOCRIT 33.5 % (36-54); HEMOGLOBIN 11.1 g/dL (14.0-18.0); LYMPHOCYTES # (AUTO) 1.6 K/uL (1.0-5.5); LYMPHOCYTES % (AUTO) 27.3 % (20.5-51.5); MEAN CORPUSCULAR HEMOGLOBIN 31 pg (27-31); MEAN CORPUSCULAR HGB CONC 33 % (32-36); MEAN CORPUSCULAR VOLUME 94 fL (79.0-98.0); MONOCYTES # (AUTO) 0.5 K/uL (0.0-1.0); NEUTROPHILS # (AUTO) 3.4 K/uL (1.8-7.7); NEUTROPHILS % (AUTO) 59.1 % (40.0-70.0); PLATELET COUNT (AUTO) 123 K/uL (130-430); RED BLOOD CELL COUNT(AUTO) 3.56 MIL/uL (4.2-6.2); RED CELL DISTRIBUTION WIDTH 14.7 % (9.0-15.0); WHITE BLOOD COUNT (AUTO) 5.8 K/uL (4.8-10.8)
[2023-03-08 07:14] LABS: ALBUMIN 2.8 g/dL (3.4-4.8); CALCIUM 7.9 mg/dL (8.4-11.0); CREATININE 0.96 mg/dL (0.55-1.30); TOTAL BILIRUBIN 0.5 mg/dL (0.0-1.0); TOTAL PROTEIN, SERUM 5.7 g/dL (6.4-8.3)
[2023-03-08] MEDS: IPRATROPIUM/ALBUTEROL SULFATE 3 ML AMPUL.NEB (DUONEB) INH SCH ×2 (07:43→11:51)
[2023-03-08] MEDS: CHOLECALCIFEROL (VITAMIN D3) 5,000 UNIT TABLET PO SCH (08:54)
[2023-03-08] MEDS: LORazepam 1 MG TABLET PO PRN (08:54)
[2023-03-08] MEDS: ATORVASTATIN 20 MG TABLET PO SCH (08:54)
[2023-03-08] MEDS: NEPHROVITE, (FOLIC ACID/VITAMIN B COMP W-C 1 TAB) PO SCH (08:55)
[2023-03-08] MEDS: ASPIRIN 81 MG TABLET(ECOTRIN) PO SCH (08:55)
[2023-03-08] MEDS: DOCUSATE SODIUM 100 MG CAPSULE PO SCH (08:55)
[2023-03-08] MEDS: THIAMINE HCL 100 MG TABLET GT SCH (08:55)
[2023-03-08] MEDS: MULTIVITS,CA,MINERALS/IRON/FA 1 TABLET PO SCH (08:55)
[2023-03-08] MEDS: PANTOPRAZOLE SODIUM 40 MG TAB PO SCH (08:55)
[2023-03-08] MEDS: DULoxetine HCL 30 MG CAPSULE.DR (CYMBALTA) PO SCH (08:56)
[2023-03-08] MEDS: CYANOCOBALAMIN (VITAMIN B-12) 1,000 MCG TABLET PO SCH (08:56)
[2023-03-08] MEDS: CARVEDILOL 12.5 MG TABLET (COREG) PO SCH (08:56)
[2023-03-08] MEDS ORDERED: LORazepam 1 MG TABLET PO ONE (14:00)
== END 2023-03-08 15:20 | disposition home health service (06) | DRG 682 ==
LOC: SED 14:09 → STU 16:30 → SIC 17:10 → STU 03-06 17:44
PROVIDERS: ADMIT Internal Medicine; ATTEND Internal Medicine
PROC: 5A09457 Assistance with Respiratory Ventilation, 24-96 Consecutive Hours, Continuous Positive Airway Pressure (ICD-10-PCS; principal; 2023-03-04)
PROC: 5A09357 Assistance with Respiratory Ventilation, Less than 24 Consecutive Hours, Continuous Positive Airway Pressure (ICD-10-PCS; 2023-03-07)
DX: N17.0 Acute kidney failure with tubular necrosis (principal); J96.21 Acute and chronic respiratory failure with hypoxia; R57.1 Hypovolemic shock; R65.11 Systemic inflammatory response syndrome (SIRS) of non-infectious origin with acute organ dysfunction; J44.1 Chronic obstructive pulmonary disease with (acute) exacerbation; E86.0 Dehydration; I27.81 Cor pulmonale (chronic); E78.5 Hyperlipidemia, unspecified; E87.6 Hypokalemia; G47.33 Obstructive sleep apnea (adult) (pediatric); I10 Essential (primary) hypertension; F41.9 Anxiety disorder, unspecified; Z20.822 Contact with and (suspected) exposure to COVID-19; F32.A Depression, unspecified; E66.9 Obesity, unspecified; F10.10 Alcohol abuse, uncomplicated; Y90.9 Presence of alcohol in blood, level not specified; Z88.8 Allergy status to other drugs, medicaments and biological substances; Z79.899 Other long term (current) drug therapy; Z90.2 Acquired absence of lung [part of]; Z68.38 Body mass index [BMI] 38.0-38.9, adult
CPT/HCPCS: 36415; 36600; 71045; 80053; 82009; 82803; 83605; 83735; 83880; 84100; 84484; 85025; 85610-TC; 85730-TC; 87040; 87081; 87086; 93005; 94640; 94660; 94760; 96374; 99291; G0378; J1956; J2543; J3411; J3475; J3490; J7030